=== PATIENT | female | born 1940 | race Caucasian/White ===

== ENCOUNTER → 2017-06-14 | Outpatient (CLI) | payer OTHER ==
[2017-06-14 11:37] LABS: BASOPHILS # (AUTO) 0.1 X10^3/uL (0.0-0.1); BASOPHILS % (AUTO) 0.8 % (0.2-1.0); EOSINOPHILS # (AUTO) 0.2 x10^3/uL (0.0-0.2); EOSINOPHILS % (AUTO) 2.6 % (0.9-2.9); HEMATOCRIT 37.5 % (36.0-47.0); HEMOGLOBIN 12.8 g/dL (12.0-16.0); LYMPHOCYTES # (AUTO) 1.7 X10^3/uL (1.3-2.9); LYMPHOCYTES % (AUTO) 24.1 % (21.0-51.0); MEAN CORPUSCULAR HEMOGLOBIN 29.5 pg (27.0-34.0); MEAN CORPUSCULAR HGB CONC 34.1 g/dL (33.0-35.0); MEAN CORPUSCULAR VOLUME 86.5 fL (80.0-100.0); MEAN PLATELET VOLUME 10.4 fL (7.4-11.0); MONOCYTES # (AUTO) 0.5 x10^3/uL (0.3-0.8); MONOCYTES % (AUTO) 7.1 % (0.0-13.0); NEUTROPHILS # (AUTO) 4.6 x10^3/uL (2.2-4.8); NEUTROPHILS % (AUTO) 65.4 % (42.0-75.0); PLATELET COUNT 128 X10^3/uL (150.0-450.0); RED BLOOD COUNT 4.34 X10^6/uL (3.5-5.4); RED CELL DISTRIBUTION WIDTH 13.4 % (11.6-16.5)
[2017-06-14 12:34] LABS: ALANINE AMINOTRANSFERASE 26 Units/L (12-78); ALBUMIN 3.8 g/dL (3.4-5.0); ALKALINE PHOSPHATASE 115 Units/L (46-116); ASPARTATE AMINO TRANSFERASE 18 Units/L (15-37); BLOOD UREA NITROGEN 36 mg/dL (7-18); CALCIUM 9.5 mg/dL (8.5-10.1); CARBON DIOXIDE 27.7 mmol/L (21-32); CHLORIDE 106 mmol/L (98-107); COR NA(FOR HYPERGLY) 144 mmol/L (136-145); CREATININE 2.38 mg/dL (0.55-1.02); SODIUM 143 mmol/L (136-145); TOTAL PROTEIN 7.2 g/dL (6.4-8.2); eGFR BLACK RACES 25 (>60); eGFR NON BLACK RACES 21 (>60)
== END ==
LOC: LAB 11:11
PROVIDERS: ATTEND Surgery
DX: R19.8 Other specified symptoms and signs involving the digestive system and abdomen (principal)
CPT/HCPCS: 36415; 80053; 82378; 85025

== ENCOUNTER 2017-06-20 07:11 | Day surgery (SDC) | payer OTHER ==
[~2017-06-20 07:11] MED LIST: D5 LR 1000 ML 1,000 ML IV ONE
[2017-06-20] MEDS ORDERED: DIPRIVAN VIAL 20 ML ONE (08:09)
[2017-06-20 09:54] VITALS: BP 134/47
== END 2017-06-20 09:47 | disposition home or self-care (01) ==
LOC: SURG1 07:11
PROVIDERS: ATTEND Surgery
PROC: 3E0H8GC Introduction of Other Therapeutic Substance into Lower GI, Via Natural or Artificial Opening Endoscopic (ICD-10-PCS; principal; 2017-06-20 09:45)
PROC: 0DJD8ZZ Inspection of Lower Intestinal Tract, Via Natural or Artificial Opening Endoscopic (ICD-10-PCS; principal; 2017-06-20 09:45)
PROC: 0DBN8ZX Excision of Sigmoid Colon, Via Natural or Artificial Opening Endoscopic, Diagnostic (ICD-10-PCS; principal; 2017-06-20 09:45)
DX: R19.4 Change in bowel habit (principal); R10.84 Generalized abdominal pain; K57.30 Diverticulosis of large intestine without perforation or abscess without bleeding; K63.89 Other specified diseases of intestine; D12.5 Benign neoplasm of sigmoid colon
CPT/HCPCS: 99100; A4217; J3490; J7120

== ENCOUNTER → 2017-06-22 | Outpatient (CLI) | payer OTHER ==
[2017-06-20 09:54] VITALS: BP 134/47
--- NOTE | 2017-06-22 09:56 | CT ---
CT abdomen and pelvis without contrast Indication: Rectal mass on colonoscopy Comparison: None Technique: CT images of the abdomen and pelvis were obtained with oral contrast. No IV contrast was g iven. Findings: There is severe lumbar spondylosis with associated scoliosis. No aggressive osseous lesions are seen. The lung bases are grossly clear. There is severe coronary artery disease. Evaluation of the abdominal pelvic viscera is limited without contrast. Accounting for this, the live r, spleen, stomach, duodenum, pancreas, right adrenal gland, and right kidney are unremarkable. There is a 2.5 cm left adrenal adenoma. The left kidney is atrophic. Previous cholecystectomy noted. No obvious rectal mass is identified, although evaluation of this area is limited with CT. There is c olonic diverticulosis without evidence for acute diverticulitis. Otherwise, no marked bowel thickenin g or dilatation of the lower GI tract is identified. The appendix is absent. The uterus is noted. The urinary bladder is unremarkable. No free fluid or adenopathy. There is marked aortoiliac atheroscler osis, without aneurysm. Impression: 1. No large rectal mass appreciated. No evidence for distant metastatic disease, within the limitatio ns of a noncontrast study. 2. Severe lumbar spondylosis, atherosclerosis, 2.5 cm left adrenal adenoma, atrophic left kidney. Reported By:
== END | disposition home or self-care (01) | DRG 395 ==
LOC: RAD 08:23
PROVIDERS: ATTEND Surgery
DX: K62.9 Disease of anus and rectum, unspecified (principal); M47.896 Other spondylosis, lumbar region; N26.1 Atrophy of kidney (terminal); D35.02 Benign neoplasm of left adrenal gland
CPT/HCPCS: 74176

== ENCOUNTER 2017-07-13 23:37 | Emergency (ER) | payer OTHER ==
[2017-07-13 23:58] VITALS: BP 134/70; BMI 25.8
--- NOTE | 2017-07-15 09:17 | DR.EXTPAIN ---
HPI - PCP Primary Care Physician: DR CALDEAR - Complaint/Symptoms Chief Complaint:: PRESSURE AND PULLING IN LEFT LOWER LEG AND CALF, COMPLAINTS OF CALF SHOWING MORE VEINS THAN NORMAL DOES HAVE A HX OF RL Self Treatment fo Chief Complaint: REGULAR SCHEDULED MEDICATIONS - Source History Provided: Patient - Mode of arrival Mode of Arrival: Ambulatory - Timing Onset of Chief Complaint: 07/13/17 PMH - PMH Past Medical History: Yes Past Medical History: Diabetes Past Medical History Comment: 03/31 [employer]- STAGE 4 KIDNEY FX Past Surgical History: Yes Surgical History: Appendectomy, Cholecystectomy, Hysterectomy, Tonsillectomy Past Surgical History Comment: GRAFT LEFT ARM FOR DIALYSIS - Family History History of Family Medical Conditions: Yes Family Medical History: Diabetes Mellitus, Sudden Cardiac - Social History Does patient currently use any type of tobacco product: No Have you used tobacco products in the last 12 months: No Type of Tobacco Use: None Does any household member use tobacco: No Alcohol Use: None Do you use any recreational Drugs:: No Lives With: Alone Lives Where: Home - infectious screening In the last 2 months have you had wt loss of >10#?: NO Have you had fever, night sweats or hemotysis?: No Have you traveled outside the country in the last 6 months?: No Isolation: Standard PE - Vital Signs Vitals: Temperature 98.3 F Pulse Rate 76 Respiratory Rate 18 Blood Pressure 134/70 O2 Sat by Pulse Oximetry 99 - Discharge Plan Disposition: LWBS After Triage Condition: Stable - Follow ups/Referrals Follow ups/Referrals: NFD,None [Primary Care Provider] - 3 days - Instructions
== END 2017-07-14 01:19 | disposition left against medical advice (07) ==
LOC: ER 23:37
DX: M79.605 Pain in left leg (principal)
CPT/HCPCS: 99281

== ENCOUNTER → 2017-07-29 | Outpatient (CLI) | payer OTHER ==
[2017-07-13 23:58] VITALS: BP 134/70
== END ==
LOC: LAB 08:42
PROVIDERS: ATTEND Nurse Practitioner Family
DX: E87.5 Hyperkalemia (principal)
CPT/HCPCS: 36415; 84132

== ENCOUNTER 2020-06-10 03:31 | Inpatient (IN) ==
[2020-06-10 03:46] VITALS: BMI 21.9
[2020-06-10] MEDS ORDERED: NS 1000 ML 1,000 ML IV ONE (05:08)
[2020-06-10] MEDS ORDERED: ZOFRAN INJ 4 MG VIAL IVP ONE (05:08)
[2020-06-10] MEDS ORDERED: ZOFRAN INJ 4 MG VIAL ONE (05:14)
[2020-06-10] MEDS ORDERED: NS 1000 ML 1,000 ML ONE (05:15)
--- NOTE | 2020-06-10 05:25 | DR.NAUSEAF ---
HPI Time Seen Time Seen by Provider: 06/10/20 05:08 Primary Care Physician Primary Care Physician: Irasema Complaints Chief Complaint Doctors Comments: chronic worsening n/v x 2 weeks. abd pain also. Chief Complaint:: Sick/ Nausea Self Treatment fo Chief Complaint: Phenegan 25mg Prevacid/Prilosec COVID-19 Coronavirus risk:travel/contact w/high risk person: No Has patient experienced Coronavirus symptoms: No Reviewed Nurses Notes Reviewed: Yes Source History Provided: Patient and Family Member Mode of Arrival Mode of Arrival: Ambulatory Timing Onset of Chief Complaint: 05/27/20 PMH PMH Past Medical History: Yes Past Medical History: Diabetes and Kidney Stones Past Surgical History: Yes Surgical History: Hysterectomy Past Surgical History Comment: Partial Hysterectomy, Tonsilectomy Family History History of Family Medical Conditions: Yes Family Medical History: Diabetes Mellitus, [place] and Hypertension Social History Alcohol Use: None Do you use any recreational Drugs:: No Lives With: Alone Lives Where: Home Travel Risk Coronavirus risk:travel/contact w/high risk person: No Has patient experienced Coronavirus symptoms: No Infectious screening In the last 2 months have you had wt loss of >10#?: NO Have you traveled outside the country in the last 6 months?: No Isolation: Standard ROS Review of Systems Constitutional: See HPI Eyes: No Symptoms Reported ENTM: No Symptoms Reported Respiratoy: No Symptoms Reported Cardiovascular: No Symptoms Reported Gastrointestinal/Abdominal: See HPI, Abdominal Pain, Nausea and Vomiting Genitourinary: No Symptoms Reported Neurological: No Symptoms Reported Musculoskeletal: No Symptoms Reported Integumentary: No Symptoms Reported All Other Systems: Reviewed and Negative PE Vital Signs Vitals: Temperature 97.7 F Pulse Rate 73 Respiratory Rate 20 Blood Pressure [Right Arm] 155/67 Blood Pressure 151/67 O2 Sat by Pulse Oximetry 97 General General Appearance: Alert and In Distress Head Head Exam: Normal Inspection Eyes Eye exam: Normal Appearance ENT ENT Exam: Mucous Membranes Dry Neck Neck Exam: Normal Inspection and Full ROM Respiratory Respiratory Exam: Normal Lung Sounds Bilat Cardiovascular Cardiovascular Exam: Regular Rate and Normal Heart Sounds Abdominal Exam Abdominal Exam: Normal Inspection and Normal Bowel Sounds Extremities Extremities Exam: Normal Inspection and Full ROM Back Back Exam: Normal Inspection and Full ROM Neurologic Neurological Exam: Alert and Oriented X3 Skin Skin Exam: Warm, Dry and Intact ROR Labs Reviewed Laboratory Results Reviewed?: Yes Result Diagrams: 06/10/20 05:40 06/10/20 05:40 Laboratory: WBC 6.8 X10^3/uL (3.6-10.0) 06/10/20 05:40 RBC 3.92 X10^6/uL (3.5-5.4) 06/10/20 05:40 Hgb 11.0 g/dL (12.0-16.0) L 06/10/20 05:40 Hct 33.4 % (36.0-47.0) L 06/10/20 05:40 MCV 85.0 fL (80.0-100.0) 06/10/20 05:40 MCH 28.1 pg (27.0-34.0) 06/10/20 05:40 MCHC 33.0 g/dL (33.0-35.0) 06/10/20 05:40 RDW 15.8 % (11.6-16.5) 06/10/20 05:40 Plt Count 195 X10^3/uL (150.0-450.0) 06/10/20 05:40 MPV 8.4 fL (7.4-11.0) 06/10/20 05:40 Neut % (Auto) 74.2 % (42.0-75.0) 06/10/20 05:40 Lymph % (Auto) 17.9 % (21.0-51.0) L 06/10/20 05:40 [place] % (Auto) 7.0 % (0.0-13.0) 06/10/20 05:40 Eos % (Auto) 0.4 % (0.9-2.9) L 06/10/20 05:40 Baso % (Auto) 0.5 % (0.2-1.0) 06/10/20 05:40 Neut # (Auto) 5.1 x10^3/uL (2.2-4.8) H 06/10/20 05:40 Lymph # (Auto) 1.2 X10^3/uL (1.3-2.9) L 06/10/20 05:40 [place] # (Auto) 0.5 x10^3/uL (0.3-0.8) 06/10/20 05:40 Eos # (Auto) 0.0 x10^3/uL (0.0-0.2) 06/10/20 05:40 Baso # (Auto) 0.0 X10^3/uL (0.0-0.1) 06/10/20 05:40 Absolute Nucleated RBC 0.0 /100WBC 06/10/20 05:40 Sodium 142 mmol/L (136-145) 06/10/20 05:40 Corrected Sodium 144 mmol/L (136-145) 06/10/20 05:40 Potassium 4.8 mmol/L (3.5-5.1) 06/10/20 05:40 Chloride 103 mmol/L (98-107) 06/10/20 05:40 Carbon Dioxide 27.1 mmol/L (21-32) 06/10/20 05:40 BUN 29 mg/dL (7-18) H 06/10/20 05:40 Creatinine 2.26 mg/dL (0.55-1.02) H 06/10/20 05:40 Est GFR (MDRD) Af Amer 27 (>60) L 06/10/20 05:40 Est GFR (MDRD) Non-Af 22 (>60) L 06/10/20 05:40 Glucose 188 mg/dL (65-99) H 06/10/20 05:40 Calcium 9.4 mg/dL (8.5-10.1) 06/10/20 05:40 Corrected Calcium 10.4 mg/dL (8.5-10.1) H 06/10/20 05:40 Total Bilirubin 0.20 mg/dL (0.2-1.0) 06/10/20 05:40 AST 14 Units/L (15-37) L 06/10/20 05:40 ALT 12 Units/L (12-78) 06/10/20 05:40 Alkaline Phosphatase 110 Units/L (46-116) 06/10/20 05:40 Total Protein 6.5 g/dL (6.4-8.2) 06/10/20 05:40 Albumin 2.8 g/dL (3.4-5.0) L 06/10/20 05:40 Globulin 3.7 g/dL (2.5-4.5) 06/10/20 05:40 Albumin/Globulin Ratio 0.8 Ratio (1.1-2.1) L 06/10/20 05:40 Lipase 45 Units/L (73-393) L 06/10/20 05:40 XRAY X-ray Results: CT shows apple core lesion at rectosigmoid w mod amt of feces proximal Opioid Opioid Risk Tool Age (Tio box if 16-45): No History of Preadolescent Sexual Abuse: No Total: 0 Total Score Risk Category: Low Risk Copyright: Lamont AYALA predicting aberrant behaviors Diagnosis Discharge Problem: Nausea and vomiting in adult patient Narrative Support Text: Mass at Rectosigmoid
--- NOTE | 2020-06-10 05:47 | CT ---
PROCEDURE: CT Abdomen and Pelvis without Contrast .HISTORY: Abdomen pain and nausea and vomiting this a.m..TECHNIQUE: Axial images were performed through the abdomen and pelvis without the administration of IV contrast with multiplanar reformations . Oral contrast was not administered . Dose reduction techniques including Automated Exposure Control (AEC) and adjustment of mA and kV were utilized .COMPARISON: 06/22/2017.TECHNICAL QUALITY: Satisfactory .FINDINGS:Some linear scar versus discoid atelectasis lung bases.Liver and spleen are unremarkable. 3.2 cm low-density left adrenal mass consistent with an adenoma. Fatty replacement of the pancreas with no other abnormality. Moderate atrophy of the left kidney diffusely. No urinary tract stones or obstructive uropathy.Previous cholecystectomy with normal size biliary tree.No abdominal ascites or pneumoperitoneum.Moderate atherosclerosis aorta.No lymphadenopathy.Large soft tissue mass with mucosal thickening rectosigmoid colon probably representing apple-core lesion related to neoplasm. There is moderate feces proximal to this point without definite obstruction. Normal size small bowel loops. Normal appendix right lower quadrant.Pelvis shows no masses or free fluid. Unremarkable reproductive organs and urinary bladder.No acute bony abnormality.IMPRESSION:1. 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 There is moderate feces proximal to the apple-core lesion.2. Left adrenal adenomas increased in size slightly.3. No other acute change identified.Electronically signed by: Karthikeyan Sharma (Jun 10, 2020 05:44:38)
[2020-06-10 06:00] LABS: BASOPHILS % (AUTO) 0.5 % (0.2-1.0); EOSINOPHILS % (AUTO) 0.4 % (0.9-2.9); HEMATOCRIT 33.4 % (36.0-47.0); LYMPHOCYTES # (AUTO) 1.2 X10^3/uL (1.3-2.9); LYMPHOCYTES % (AUTO) 17.9 % (21.0-51.0); MEAN CORPUSCULAR HEMOGLOBIN 28.1 pg (27.0-34.0); MEAN PLATELET VOLUME 8.4 fL (7.4-11.0); MONOCYTES # (AUTO) 0.5 x10^3/uL (0.3-0.8); NEUTROPHILS # (AUTO) 5.1 x10^3/uL (2.2-4.8); NEUTROPHILS % (AUTO) 74.2 % (42.0-75.0); PLATELET COUNT 195 X10^3/uL (150.0-450.0); RED BLOOD COUNT 3.92 X10^6/uL (3.5-5.4); RED CELL DISTRIBUTION WIDTH 15.8 % (11.6-16.5); WHITE BLOOD COUNT 6.8 X10^3/uL (3.6-10.0)
[2020-06-10 06:39] LABS: ALBUMIN 2.8 g/dL (3.4-5.0); CALCIUM 9.4 mg/dL (8.5-10.1); CARBON DIOXIDE 27.1 mmol/L (21-32); COR CA(FOR HYPOALB) 10.4 mg/dL (8.5-10.1); CREATININE 2.26 mg/dL (0.55-1.02); TOTAL PROTEIN 6.5 g/dL (6.4-8.2)
[2020-06-10] MEDS ORDERED: NS 1000 ML 1,000 ML IV SCH (09:00)
[2020-06-10] MEDS ORDERED: PHENERGAN TAB 25 MG PO PRN (09:34)
--- NOTE | 2020-06-10 10:19 | RAD ---
HISTORYPREOP, diabetes kidneys stone, hypertensionSTUDYCHEST, 1 VIEWCOMPARISONNoneFINDINGSThe trachea is midline. Normal heart size, the lungs are well expanded and clear.IMPRESSIONNo acute cardiopulmonary disease.Electronically signed by: Beverly Hylton (Jun 10, 2020 10:17:34)
--- NOTE | 2020-06-10 13:40 | DR.H&P ---
H&P History & Physical for Day of: H&P Date: 06/10/20 Chief Complaint Chief Complaint: nausea, vomiting and abdominal pain Allergies Allergies Allergy/AdvReac Type Severity Reaction Status Date / Time latex Allergy Verified 06/20/17 07:49 Sulfa (Sulfonamide Allergy Verified 06/20/17 07:49 Antibiotics) [SULFA] History of Present Illness History of Present Illness: Pt is a 80 year old female past medical history of DMT2, CKD IV, presenting with abdominal pain with associated nausea and vomiting for the past 2-3 days. She reports loss of appetite due to nausea, states she is still having bowel movements. Pt felt fatigue and with persistent symptoms decided to go to ED. Labs/imaging: Wbc 6.8, Hgb 11, Plt 915, Na 142, K 4.8, Cr 2.26, Glucose 188, AST 14, ALT 12, ALKP 110, Lipase 45, COVID-19 negative, CXR: No acute cardiopulmonary disease. CTAP showed recto-sigmoid mass concerning for malignancy. Patient had a rectal mass on colonoscopy in 2018 and biopsy was done which was negative for neoplasm. Plan: consult Dr. Parker, start gentle hydration with NS. Keep NPO. Start anti- emetics. Resume home medications, SSI. Monitor Am labs/imaging. Past Medical History Past Medical History: Diabetes, Kidney Stones and Renal Disease Past Surgical History Surgical History: Hysterectomy and Tonsillectomy Family History Family Medical History: Diabetes Mellitus, [place] and Hypertension Social History Does patient currently use any type of tobacco product: No Have you used tobacco products in the last 12 months: No Type of Tobacco Use: None Does any household member use tobacco: No Alcohol Use: None Drug Use: None Medications Home Medications: latex Allergy (Verified 06/20/17 07:49) Sulfa (Sulfonamide Antibiotics) [SULFA] Allergy (Verified 06/20/17 07:49) CONTINUE taking the following medications cephalexin 500 mg PO BID 06/10/20 [History] lorazepam 0.5 mg PO DAILY 06/10/20 [History] promethazine 25 mg PO 06/10/20 [History] Labs Result Diagrams: 06/11/20 05:42 06/11/20 05:42 Labs: Laboratory WBC 6.8 X10^3/uL (3.6-10.0) 06/10/20 05:40 RBC 3.92 X10^6/uL (3.5-5.4) 06/10/20 05:40 Hgb 11.0 g/dL (12.0-16.0) L 06/10/20 05:40 Hct 33.4 % (36.0-47.0) L 06/10/20 05:40 MCV 85.0 fL (80.0-100.0) 06/10/20 05:40 MCH 28.1 pg (27.0-34.0) 06/10/20 05:40 MCHC 33.0 g/dL (33.0-35.0) 06/10/20 05:40 RDW 15.8 % (11.6-16.5) 06/10/20 05:40 Plt Count 195 X10^3/uL (150.0-450.0) 06/10/20 05:40 MPV 8.4 fL (7.4-11.0) 06/10/20 05:40 Neut % (Auto) 74.2 % (42.0-75.0) 06/10/20 05:40 Lymph % (Auto) 17.9 % (21.0-51.0) L 06/10/20 05:40 [place] % (Auto) 7.0 % (0.0-13.0) 06/10/20 05:40 Eos % (Auto) 0.4 % (0.9-2.9) L 06/10/20 05:40 Baso % (Auto) 0.5 % (0.2-1.0) 06/10/20 05:40 Neut # (Auto) 5.1 x10^3/uL (2.2-4.8) H 06/10/20 05:40 Lymph # (Auto) 1.2 X10^3/uL (1.3-2.9) L 06/10/20 05:40 [place] # (Auto) 0.5 x10^3/uL (0.3-0.8) 06/10/20 05:40 Eos # (Auto) 0.0 x10^3/uL (0.0-0.2) 06/10/20 05:40 Baso # (Auto) 0.0 X10^3/uL (0.0-0.1) 06/10/20 05:40 Absolute Nucleated RBC 0.0 /100WBC 06/10/20 05:40 Sodium 142 mmol/L (136-145) 06/10/20 05:40 Corrected Sodium 144 mmol/L (136-145) 06/10/20 05:40 Potassium 4.8 mmol/L (3.5-5.1) 06/10/20 05:40 Chloride 103 mmol/L (98-107) 06/10/20 05:40 Carbon Dioxide 27.1 mmol/L (21-32) 06/10/20 05:40 BUN 29 mg/dL (7-18) H 06/10/20 05:40 Creatinine 2.26 mg/dL (0.55-1.02) H 06/10/20 05:40 Est GFR (MDRD) Af Amer 27 (>60) L 06/10/20 05:40 Est GFR (MDRD) Non-Af 22 (>60) L 06/10/20 05:40 Glucose 188 mg/dL (65-99) H 06/10/20 05:40 POC Glucose (mg/dL) 111 mg/dL (65-99) H 06/10/20 10:52 Calcium 9.4 mg/dL (8.5-10.1) 06/10/20 05:40 Corrected Calcium 10.4 mg/dL (8.5-10.1) H 06/10/20 05:40 Total Bilirubin 0.20 mg/dL (0.2-1.0) 06/10/20 05:40 AST 14 Units/L (15-37) L 06/10/20 05:40 ALT 12 Units/L (12-78) 06/10/20 05:40 Alkaline Phosphatase 110 Units/L (46-116) 06/10/20 05:40 Total Protein 6.5 g/dL (6.4-8.2) 06/10/20 05:40 Albumin 2.8 g/dL (3.4-5.0) L 06/10/20 05:40 Globulin 3.7 g/dL (2.5-4.5) 06/10/20 05:40 Albumin/Globulin Ratio 0.8 Ratio (1.1-2.1) L 06/10/20 05:40 Lipase 45 Units/L (73-393) L 06/10/20 05:40 SARS CoV-2 RNA Rapid RANJAN Negative (NEGATIVE) 06/10/20 07:31 Review of Systems Constitutional: Weakness Eyes: No Symptoms Reported ENT: No Symptoms Reported Respiratory: No Symptoms Reported Cardiovascular: No Symptoms Reported Gastrointestinal: Nausea, Vomiting and Abdominal Pain Genitourinary: No Symptoms Reported Musculoskeletal: No Symptoms Reported Skin: No Symptoms Reported Neurological: No Symptoms Reported Physical Exam Vital Signs: Temperature 98.1 F Pulse Rate [Right Brachial] 71 Pulse Rate 78 Respiratory Rate 16 Blood Pressure [Right Arm] 157/69 Blood Pressure 151/67 O2 Sat by Pulse Oximetry 99 Oriented: Normal Eyes: Normal Ear: Normal Nose: Normal Throat: Normal Respiratory: Clear Throughout Cardiovascular: Normal : Normal Auscultation: Bowel Sounds: Normal Tenderness: RLQ, LLQ and Mild Skin: Normal Musculoskeletal: Normal Psychiatric: Normal Mood Description: Calm and Appropriate Affect: Normal Speech Pattern: Clear and Appropriate Assessment/Plan (1) Nausea and vomiting in adult patient: Status: Acute (2) Rectal mass: Status: Acute (3) CKD (chronic kidney disease): Qualifiers: Chronic kidney disease stage: stage 3 (moderate) Chronic kidney disease stage 3 subtype: stage 3b (GFR 30-44) Qualified Code(s): N18.32 - Chronic kidney disease, stage 3b Status: Acute Review H&P Reviewed: Yes Patient was examined?: Yes
[2020-06-10] MEDS ORDERED: DULCOLAX TAB EC 5 MG PO ONE (13:50)
[2020-06-10] MEDS: FLAGYL IV PREMIX 500 MG BAG 500 MG/100 ML BAG IV SCH ×3 (13:53→20:34)
[2020-06-10] MEDS ORDERED: NULYTELY or GO-LYTELY PO SCH (14:00)
[2020-06-10] MEDS: ZOFRAN INJ 4 MG VIAL IVP PRN ×2 (14:06→20:37)
[2020-06-10] MEDS ORDERED: MIRALAX POWDER (255 GRAMS BTL) PO NR (16:00)
[2020-06-10] MEDS: D5 1/2 NS 1000 ML 1,000 ML IV SCH (16:12)
[2020-06-10] MEDS ORDERED: PHENERGAN INJ 25 MG IM ONE (21:41)
[2020-06-11] MEDS: FLAGYL IV PREMIX 500 MG BAG 500 MG/100 ML BAG IV SCH ×4 (02:45→20:27)
[2020-06-11] MEDS: D5 1/2 NS 1000 ML 1,000 ML IV SCH ×3 (02:45→20:15)
[2020-06-11 06:15] LABS: BASOPHILS % (AUTO) 0.5 % (0.2-1.0); EOSINOPHILS # (AUTO) 0.1 x10^3/uL (0.0-0.2); EOSINOPHILS % (AUTO) 1.9 % (0.9-2.9); HEMATOCRIT 31.5 % (36.0-47.0); HEMOGLOBIN 10.4 g/dL (12.0-16.0); LYMPHOCYTES # (AUTO) 1.5 X10^3/uL (1.3-2.9); LYMPHOCYTES % (AUTO) 25.3 % (21.0-51.0); MEAN CORPUSCULAR HGB CONC 33.1 g/dL (33.0-35.0); MEAN CORPUSCULAR VOLUME 84.5 fL (80.0-100.0); MEAN PLATELET VOLUME 8.7 fL (7.4-11.0); MONOCYTES # (AUTO) 0.5 x10^3/uL (0.3-0.8); MONOCYTES % (AUTO) 9.1 % (0.0-13.0); NEUTROPHILS # (AUTO) 3.7 x10^3/uL (2.2-4.8); NEUTROPHILS % (AUTO) 63.2 % (42.0-75.0); PLATELET COUNT 191 X10^3/uL (150.0-450.0); RED BLOOD COUNT 3.73 X10^6/uL (3.5-5.4); RED CELL DISTRIBUTION WIDTH 15.7 % (11.6-16.5); WHITE BLOOD COUNT 5.8 X10^3/uL (3.6-10.0)
[2020-06-11 06:26] LABS: ALBUMIN 2.4 g/dL (3.4-5.0); CALCIUM 8.9 mg/dL (8.5-10.1); CARBON DIOXIDE 26.4 mmol/L (21-32); COR CA(FOR HYPOALB) 10.2 mg/dL (8.5-10.1); CREATININE 2.18 mg/dL (0.55-1.02); TOTAL PROTEIN 5.5 g/dL (6.4-8.2)
[2020-06-11] MEDS ORDERED: BRIDION ONE (09:20)
[2020-06-11] MEDS ORDERED: FENTANYL INJ 250 mcg ONE (09:20)
[2020-06-11] MEDS ORDERED: ZEMURON 50 MG VIAL ONE (09:21)
[2020-06-11] MEDS ORDERED: AMIDATE INJ 40 MG VIAL ONE (09:21)
[2020-06-11] MEDS ORDERED: NS 1000 ML 1,000 ML ONE ×2 (09:33→09:53)
[2020-06-11] MEDS ORDERED: POLYMYXIN B SULFATE ONE (09:51)
[2020-06-11] MEDS ORDERED: SUPRANE ONE (10:16)
[2020-06-11] MEDS ORDERED: ZOFRAN INJ 4 MG VIAL ONE (10:16)
[2020-06-11] MEDS ORDERED: VERSED ONE (10:16)
[2020-06-11] MEDS ORDERED: XYLOCAINE 2 % (PLAIN) ONE (10:16)
[2020-06-11] MEDS ORDERED: EPHEDRINE SULFATE INJ ONE (10:16)
--- NOTE | 2020-06-11 10:28 | PCM.PROG ---
Progress Note Progress Note for Day of Date of Exam: 06/11/20 Subjective Subjective: Pt is a 80 year old female past medical history of DMT2, CKD, admitted for nausea and vomiting and recto-sigmoid mass. This morning patient reports some improvement in symptoms. She is a little anxious about the procedure today. Labs/imaging: Wbc 5.8, Hgb 10.4, Plt 191, Na 142, K 4.5, Cr 2.1 8, Glucose 160, CTAP showed recto-sigmoid mass concerning for malignancy. Echo: EF=64, severe aortic stenosis. General surgery consulted Dr. Guardado, Pt is on gentle hydration with NS. Keep NPO. Continue anti-emetics, SSI, IV Flagyl 500mg q6h. Pt received bowel prep yesterday. She is scheduled for mass resection with primary anastomosis today. Will follow surgery recommendation, otherwise continue current treatment plan and follow labs/imaging in the morning. Past Medical Family Social History Past Med/Fam/Surg Hx: No changes since H&P Allergies: Allergies latex Allergy (Verified 06/20/17 07:49) Sulfa (Sulfonamide Antibiotics) [SULFA] Allergy (Verified 06/20/17 07:49) Review of Systems ROS: No change since H&P Vital Signs and I&O's Vital Signs: Temperature 98 F Pulse Rate [Right Brachial] 72 Pulse Rate 75 Respiratory Rate 20 Blood Pressure [Right Arm] 122/56 Blood Pressure 161/73 O2 Sat by Pulse Oximetry 98 Intake and Output: Intake & Output 06/08/20 06/09/20 06/10/20 06/11/20 23:59 23:59 23:59 23:59 Intake Total 920 / 920 621 / 621 Balance 920 / 920 621 / 621 Physical Exam Oriented: Normal Eyes: Normal Ear: Normal Nose: Normal Throat: Normal Cardiovascular: Normal : Normal Auscultation: Bowel Sounds: Normal Tenderness: RLQ, LLQ and Mild Skin: Normal Musculoskeletal: Normal Psychiatric: Normal Mood Description: Calm and Appropriate Affect: Normal Speech Pattern: Clear and Appropriate Laboratory and Diagnostics Result Diagrams: 06/11/20 05:42 06/11/20 05:42 Labs: Laboratory WBC 5.8 X10^3/uL (3.6-10.0) 06/11/20 05:42 RBC 3.73 X10^6/uL (3.5-5.4) 06/11/20 05:42 Hgb 10.4 g/dL (12.0-16.0) L 06/11/20 05:42 Hct 31.5 % (36.0-47.0) L 06/11/20 05:42 MCV 84.5 fL (80.0-100.0) 06/11/20 05:42 MCH 28.0 pg (27.0-34.0) 06/11/20 05:42 MCHC 33.1 g/dL (33.0-35.0) 06/11/20 05:42 RDW 15.7 % (11.6-16.5) 06/11/20 05:42 Plt Count 191 X10^3/uL (150.0-450.0) 06/11/20 05:42 MPV 8.7 fL (7.4-11.0) 06/11/20 05:42 Neut % (Auto) 63.2 % (42.0-75.0) 06/11/20 05:42 Lymph % (Auto) 25.3 % (21.0-51.0) 06/11/20 05:42 [place] % (Auto) 9.1 % (0.0-13.0) 06/11/20 05:42 Eos % (Auto) 1.9 % (0.9-2.9) 06/11/20 05:42 Baso % (Auto) 0.5 % (0.2-1.0) 06/11/20 05:42 Neut # (Auto) 3.7 x10^3/uL (2.2-4.8) 06/11/20 05:42 Lymph # (Auto) 1.5 X10^3/uL (1.3-2.9) 06/11/20 05:42 [place] # (Auto) 0.5 x10^3/uL (0.3-0.8) 06/11/20 05:42 Eos # (Auto) 0.1 x10^3/uL (0.0-0.2) 06/11/20 05:42 Baso # (Auto) 0.0 X10^3/uL (0.0-0.1) 06/11/20 05:42 Absolute Nucleated RBC 0.0 /100WBC 06/11/20 05:42 Sodium 141 mmol/L (136-145) 06/11/20 05:42 Corrected Sodium 142 mmol/L (136-145) 06/11/20 05:42 Potassium 4.5 mmol/L (3.5-5.1) 06/11/20 05:42 Chloride 107 mmol/L (98-107) 06/11/20 05:42 Carbon Dioxide 26.4 mmol/L (21-32) 06/11/20 05:42 BUN 25 mg/dL (7-18) H 06/11/20 05:42 Creatinine 2.18 mg/dL (0.55-1.02) H 06/11/20 05:42 Est GFR (MDRD) Af Amer 28 (>60) L 06/11/20 05:42 Est GFR (MDRD) Non-Af 23 (>60) L 06/11/20 05:42 Glucose 160 mg/dL (65-99) H 06/11/20 05:42 POC Glucose (mg/dL) 142 mg/dL (65-99) H 06/11/20 05:32 Calcium 8.9 mg/dL (8.5-10.1) 06/11/20 05:42 Corrected Calcium 10.2 mg/dL (8.5-10.1) H 06/11/20 05:42 Total Bilirubin 0.20 mg/dL (0.2-1.0) 06/11/20 05:42 AST 11 Units/L (15-37) L 06/11/20 05:42 ALT 8 Units/L (12-78) L 06/11/20 05:42 Alkaline Phosphatase 88 Units/L (46-116) 06/11/20 05:42 Total Protein 5.5 g/dL (6.4-8.2) L 06/11/20 05:42 Albumin 2.4 g/dL (3.4-5.0) L 06/11/20 05:42 Globulin 3.1 g/dL (2.5-4.5) 06/11/20 05:42 Albumin/Globulin Ratio 0.8 Ratio (1.1-2.1) L 06/11/20 05:42 Lipase 45 Units/L (73-393) L 06/10/20 05:40 SARS CoV-2 RNA Rapid RANJAN Negative (NEGATIVE) 06/10/20 07:31 Plan (1) Rectal mass: Status: Acute Plan: Scheduled for surgical resection today with primary anastomosis. (2) Nausea and vomiting in adult patient: Status: Acute (3) CKD (chronic kidney disease): Status: Acute Qualifiers: Chronic kidney disease stage: stage 3 (moderate) Chronic kidney disease stage 3 subtype: stage 3b (GFR 30-44) Qualified Code(s): N18.32 - Chronic kidney disease, stage 3b
[2020-06-11] MEDS ORDERED: ANCEF VIAL 1 GRAM ONE (10:51)
[2020-06-11] MEDS ORDERED: DILAUDID INJ ONE (11:32)
[2020-06-11] MEDS ORDERED: FENTANYL INJ 100 mcg ONE (11:33)
[2020-06-11] MEDS ORDERED: BETADINE SOLN ONE (12:52)
[2020-06-11] MEDS ORDERED: BENADRYL INJ 50 MG VIAL IVP PRN (13:32)
[2020-06-11] MEDS ORDERED: ZOFRAN INJ 4 MG VIAL IVP PRN (13:32)
[2020-06-11] MEDS ORDERED: PHENERGAN INJ 25 MG IM PRN (13:32)
[2020-06-11] MEDS ORDERED: DILAUDID INJ IVP PRN (13:32)
--- NOTE | 2020-06-11 13:38 | DR.UPDATE ---
H&P Update History and Physical Update: History and Physical reviewed and patient examined. Changes noted: NO Yes with the following: will place central line for fluid maintenance for bowel resection H&P Reviewed: Yes Patient was examined?: Yes Procedures (ALL) - Central Line Placement PCM.CLCO: verbal consent Time out performed: Yes Patient placed pm monitor/pulse ox: Yes MD prep: mask, gown, gloves, other Centrial line prep: chlorhexidine scrub, sterile drapes applied Ultrasound used for placement: Yes (right IJ visualized/canulization visualized) Central line lumen ininserted: triple Post procedure: sutured in place, good blood return, all ports aspirated, flushed,capped, sterile dressing applied Post procedure xray: tip oc catheter in good position (see CXR pending) Patient tolerated procedure: Yes Complications: none
[2020-06-11] MEDS ORDERED: D5 1/2 NS 1000 ML 1,000 ML IV SCH (14:00)
--- NOTE | 2020-06-11 14:23 | RAD ---
HISTORYCENTRAL LINE PLACEMENTSTUDYCHEST, 1 VIEWCOMPARISONPortable chest June 10, 2020.FINDINGSThe trachea is midline. The cardiac silhouette is unremarkable . The lungs are clear without focal infiltrate or effusion but there is atelectasis in the right lung base medially. An NG tube is in place with the tip in the lateral foot body of the stomach. A right internal jugular line is been placed since yesterday's exam with the tip in the right atrium. There is no pneumothorax.. The bony thorax is unremarkable.IMPRESSIONNG tube in place in good position, right internal jugular line in good position with the tip in the right atrium without pneumothorax.Mild atelectasis is noted in the right lung base new from yesterday's exam.Electronically signed by: MARQUITA RICKS (Jun 11, 2020 14:20:13)
[2020-06-11] MEDS: DILAUDID INJ IVP PRN ×2 (16:29→20:27)
[2020-06-11] MEDS: HumuLIN R SC PRN ×2 (17:30→20:37)
[2020-06-11 18:01] LABS: BASOPHILS % (AUTO) 0.1 % (0.2-1.0); HEMATOCRIT 29.3 % (36.0-47.0); HEMOGLOBIN 9.4 g/dL (12.0-16.0); LYMPHOCYTES # (AUTO) 0.6 X10^3/uL (1.3-2.9); LYMPHOCYTES % (AUTO) 3.5 % (21.0-51.0); MEAN CORPUSCULAR HEMOGLOBIN 27.8 pg (27.0-34.0); MEAN CORPUSCULAR HGB CONC 32.2 g/dL (33.0-35.0); MEAN CORPUSCULAR VOLUME 86.4 fL (80.0-100.0); MEAN PLATELET VOLUME 8.7 fL (7.4-11.0); MONOCYTES # (AUTO) 0.9 x10^3/uL (0.3-0.8); MONOCYTES % (AUTO) 5.4 % (0.0-13.0); NEUTROPHILS # (AUTO) 15.5 x10^3/uL (2.2-4.8); PLATELET COUNT 197 X10^3/uL (150.0-450.0); RED BLOOD COUNT 3.39 X10^6/uL (3.5-5.4)
[2020-06-11 18:22] LABS: BAND NEUTROPHILS % 4 % (0-10); PLATELET MORPHOLOGY COMMENT NORMAL (NORMAL)
[2020-06-12] MEDS: ZOFRAN INJ 4 MG VIAL IVP PRN ×2 (00:05→08:05)
[2020-06-12] MEDS: DILAUDID INJ IVP PRN ×7 (00:20→23:30)
[2020-06-12] MEDS: D5 1/2 NS 1000 ML 1,000 ML IV SCH ×7 (01:39→20:00)
[2020-06-12] MEDS: FLAGYL IV PREMIX 500 MG BAG 500 MG/100 ML BAG IV SCH ×4 (03:30→20:00)
[2020-06-12 04:49] LABS: BASOPHILS % (AUTO) 0.3 % (0.2-1.0); HEMATOCRIT 29.2 % (36.0-47.0); HEMOGLOBIN 9.3 g/dL (12.0-16.0); LYMPHOCYTES # (AUTO) 0.8 X10^3/uL (1.3-2.9); MEAN CORPUSCULAR HEMOGLOBIN 27.7 pg (27.0-34.0); MEAN CORPUSCULAR HGB CONC 31.7 g/dL (33.0-35.0); MEAN CORPUSCULAR VOLUME 87.2 fL (80.0-100.0); MEAN PLATELET VOLUME 8.9 fL (7.4-11.0); MONOCYTES # (AUTO) 0.7 x10^3/uL (0.3-0.8); MONOCYTES % (AUTO) 6.2 % (0.0-13.0); NEUTROPHILS # (AUTO) 9.4 x10^3/uL (2.2-4.8); NEUTROPHILS % (AUTO) 86.5 % (42.0-75.0); PLATELET COUNT 182 X10^3/uL (150.0-450.0); RED BLOOD COUNT 3.35 X10^6/uL (3.5-5.4); RED CELL DISTRIBUTION WIDTH 15.8 % (11.6-16.5); WHITE BLOOD COUNT 10.9 X10^3/uL (3.6-10.0)
[2020-06-12 04:56] LABS: ALBUMIN 2.3 g/dL (3.4-5.0); CALCIUM 8.6 mg/dL (8.5-10.1); CARBON DIOXIDE 25.3 mmol/L (21-32); CREATININE 2.5 mg/dL (0.55-1.02); TOTAL PROTEIN 5.2 g/dL (6.4-8.2)
[2020-06-12] MEDS: HumuLIN R SC PRN ×3 (06:11→16:58)
[2020-06-12] MEDS: LOVENOX INJ 30 MG SYR SC SCH (08:45)
[2020-06-12] MEDS: PROTONIX INJ 40 MG VIAL IVP SCH (08:46)
--- NOTE | 2020-06-12 08:50 | DR.PROGNOT ---
Hospital Progress Notes - Progress Note for Day of: Progress Note Date: 06/12/20 - Chief Complaint Chief Complaint: PO day 1 . c/o incisional pain . urine out put was low last night , slightly improved with fluid. BUN/Creat 27/2.5 normal lytes . WBC 10.9 Hgb 9.3. temp 98.7 - Past Medical Family Social History Past Med/Fam/Surg Hx: No changes since H&P Allergies: Allergies latex Allergy (Verified 06/20/17 07:49) Sulfa (Sulfonamide Antibiotics) [SULFA] Allergy (Verified 06/20/17 07:49) - Review Of Systems ROS: No change since H&P - Vital Signs Vital Signs: Temperature 97.9 F Pulse Rate [Right Brachial] 84 Pulse Rate 108 Respiratory Rate 14 Blood Pressure [Right Arm] 146/67 Blood Pressure 120/65 O2 Sat by Pulse Oximetry 98 - Physical Exam Oriented: Normal Eyes: Normal Ear: Normal Nose: Normal Throat: Normal Cardiovascular: Normal : Normal, Other (has guerra in place ) GI:Auscultation: Decreased GI: Tenderness: Diffuse (soft abdpmen with diffuse tenderness . ) Skin: Normal Musculoskeletal: Normal Psychiatric: Normal Mood Description: Anxious Affect: Normal Speech Pattern: Clear, Appropriate - Laboratory and Diagnostics Result Diagrams: 06/12/20 04:20 06/12/20 04:20 Labs: Laboratory WBC 10.9 X10^3/uL (3.6-10.0) H 06/12/20 04:20 RBC 3.35 X10^6/uL (3.5-5.4) L 06/12/20 04:20 Hgb 9.3 g/dL (12.0-16.0) L 06/12/20 04:20 Hct 29.2 % (36.0-47.0) L 06/12/20 04:20 MCV 87.2 fL (80.0-100.0) 06/12/20 04:20 MCH 27.7 pg (27.0-34.0) 06/12/20 04:20 MCHC 31.7 g/dL (33.0-35.0) L 06/12/20 04:20 RDW 15.8 % (11.6-16.5) 06/12/20 04:20 Plt Count 182 X10^3/uL (150.0-450.0) 06/12/20 04:20 Plt Count Comment Adequate (ADEQUATE) 06/11/20 17:40 MPV 8.9 fL (7.4-11.0) 06/12/20 04:20 Neut % (Auto) 86.5 % (42.0-75.0) H 06/12/20 04:20 Lymph % (Auto) 7.0 % (21.0-51.0) L 06/12/20 04:20 [place] % (Auto) 6.2 % (0.0-13.0) 06/12/20 04:20 Eos % (Auto) 0.0 % (0.9-2.9) L 06/12/20 04:20 Baso % (Auto) 0.3 % (0.2-1.0) 06/12/20 04:20 Neut # (Auto) 9.4 x10^3/uL (2.2-4.8) H 06/12/20 04:20 Lymph # (Auto) 0.8 X10^3/uL (1.3-2.9) L 06/12/20 04:20 [place] # (Auto) 0.7 x10^3/uL (0.3-0.8) 06/12/20 04:20 Eos # (Auto) 0.0 x10^3/uL (0.0-0.2) 06/12/20 04:20 Baso # (Auto) 0.0 X10^3/uL (0.0-0.1) 06/12/20 04:20 Absolute Nucleated RBC 0.0 /100WBC 06/12/20 04:20 Total Counted 100 06/11/20 17:40 Neutrophils % (Manual) 87 % (39-76) H 06/11/20 17:40 Band Neutrophils % 4 % (0-10) 06/11/20 17:40 Lymphocytes % (Manual) 5 % (13-43) L 06/11/20 17:40 Monocytes % (Manual) 4 % (4-9) 06/11/20 17:40 Plt Morphology Comment Normal (NORMAL) 06/11/20 17:40 RBC Morphology Normal (NORMAL) 06/11/20 17:40 Sodium 139 mmol/L (136-145) 06/12/20 04:20 Corrected Sodium 145 mmol/L (136-145) 06/12/20 04:20 Potassium 4.9 mmol/L (3.5-5.1) 06/12/20 04:20 Chloride 107 mmol/L (98-107) 06/12/20 04:20 Carbon Dioxide 25.3 mmol/L (21-32) 06/12/20 04:20 BUN 27 mg/dL (7-18) H 06/12/20 04:20 Creatinine 2.50 mg/dL (0.55-1.02) H 06/12/20 04:20 Est GFR (MDRD) Af Amer 24 (>60) L 06/12/20 04:20 Est GFR (MDRD) Non-Af 20 (>60) L 06/12/20 04:20 Glucose 335 mg/dL (65-99) H 06/12/20 04:20 POC Glucose (mg/dL) 280 mg/dL (65-99) H 06/11/20 19:34 Calcium 8.6 mg/dL (8.5-10.1) 06/12/20 04:20 Corrected Calcium 10.0 mg/dL (8.5-10.1) 06/12/20 04:20 Total Bilirubin 0.30 mg/dL (0.2-1.0) 06/12/20 04:20 AST 43 Units/L (15-37) H 06/12/20 04:20 ALT 15 Units/L (12-78) 06/12/20 04:20 Alkaline Phosphatase 80 Units/L (46-116) 06/12/20 04:20 Total Protein 5.2 g/dL (6.4-8.2) L 06/12/20 04:20 Albumin 2.3 g/dL (3.4-5.0) L 06/12/20 04:20 Globulin 2.9 g/dL (2.5-4.5) 06/12/20 04:20 Albumin/Globulin Ratio 0.8 Ratio (1.1-2.1) L 06/12/20 04:20 Lipase 45 Units/L (73-393) L 06/10/20 05:40 SARS CoV-2 RNA Rapid RANJAN Negative (NEGATIVE) 06/10/20 07:31 Tissue Pathology To follow 03/17/21 12:30 - Assessment and Plan 1: obstructing mass of recto sigmoid ,. s/p Gant's procedure . CKD , DM. HTN ,. same PO care . OOB , D/C NGT , DVT prophylaxis , incentive spirometer . - Problem Patient Problems: Patient Problems Nausea and vomiting in adult patient (Acute) R11.2
[2020-06-12] MEDS ORDERED: ATIVAN INJ 2 MG VIAL IVP PRN ×2 (12:42→23:42)
--- NOTE | 2020-06-12 13:12 | PCM.PROG ---
Progress Note Progress Note for Day of Date of Exam: 06/12/20 Subjective Subjective: Pt is a 80 year old female past medical history of DMT2, CKD, admitted recto-sigmoid mass s/p mass resection with colostomy. This morning patient is resting in bed. No acute concerns overnight. Labs/imaging: Wbc 10.9, Hgb 9.3, Plt 182, Na 139, K 4.9, Cr 2.50, Glucose 135. Pt is on IVF D5 1/2 NS@150ml/h. Will advance diet to clear liquids. Continue anti-emetics, SSI, IV Flagyl 500mg q6h. Follow surgery recommendations, KUB ordered for the morning. Continue current treatment plan and follow labs/imaging in the morning. Past Medical Family Social History Past Med/Fam/Surg Hx: No changes since H&P Allergies: Allergies latex Allergy (Verified 06/20/17 07:49) Sulfa (Sulfonamide Antibiotics) [SULFA] Allergy (Verified 06/20/17 07:49) Review of Systems ROS: No change since H&P Vital Signs and I&O's Vital Signs: Temperature 98.4 F Pulse Rate [Right Brachial] 82 Pulse Rate 108 Respiratory Rate 16 Blood Pressure [Right Arm] 143/62 Blood Pressure 120/65 O2 Sat by Pulse Oximetry 100 Intake and Output: Intake & Output 06/09/20 06/10/20 06/11/20 06/12/20 23:59 23:59 23:59 23:59 Intake Total 920 / 920 5624 / 5624 819 / 819 Output Total 2551 / 2587 174 / 174 Balance 920 / 920 3073 / 3037 645 / 645 Physical Exam Oriented: Normal Eyes: Normal Ear: Normal Nose: Normal Throat: Normal Respiratory: Normal Cardiovascular: Normal : Other (has guerra in place ) Auscultation: Bowel Sounds: Decreased Palpation: Other (colostomy bag noted) Tenderness: Other (colostomy present ) Skin: Normal Musculoskeletal: Normal Psychiatric: Normal Mood Description: Anxious Affect: Normal Speech Pattern: Clear and Appropriate Laboratory and Diagnostics Result Diagrams: 06/12/20 04:20 06/12/20 04:20 Labs: Laboratory WBC 10.9 X10^3/uL (3.6-10.0) H 06/12/20 04:20 RBC 3.35 X10^6/uL (3.5-5.4) L 06/12/20 04:20 Hgb 9.3 g/dL (12.0-16.0) L 06/12/20 04:20 Hct 29.2 % (36.0-47.0) L 06/12/20 04:20 MCV 87.2 fL (80.0-100.0) 06/12/20 04:20 MCH 27.7 pg (27.0-34.0) 06/12/20 04:20 MCHC 31.7 g/dL (33.0-35.0) L 06/12/20 04:20 RDW 15.8 % (11.6-16.5) 06/12/20 04:20 Plt Count 182 X10^3/uL (150.0-450.0) 06/12/20 04:20 Plt Count Comment Adequate (ADEQUATE) 06/11/20 17:40 MPV 8.9 fL (7.4-11.0) 06/12/20 04:20 Neut % (Auto) 86.5 % (42.0-75.0) H 06/12/20 04:20 Lymph % (Auto) 7.0 % (21.0-51.0) L 06/12/20 04:20 [place] % (Auto) 6.2 % (0.0-13.0) 06/12/20 04:20 Eos % (Auto) 0.0 % (0.9-2.9) L 06/12/20 04:20 Baso % (Auto) 0.3 % (0.2-1.0) 06/12/20 04:20 Neut # (Auto) 9.4 x10^3/uL (2.2-4.8) H 06/12/20 04:20 Lymph # (Auto) 0.8 X10^3/uL (1.3-2.9) L 06/12/20 04:20 [place] # (Auto) 0.7 x10^3/uL (0.3-0.8) 06/12/20 04:20 Eos # (Auto) 0.0 x10^3/uL (0.0-0.2) 06/12/20 04:20 Baso # (Auto) 0.0 X10^3/uL (0.0-0.1) 06/12/20 04:20 Absolute Nucleated RBC 0.0 /100WBC 06/12/20 04:20 Total Counted 100 06/11/20 17:40 Neutrophils % (Manual) 87 % (39-76) H 06/11/20 17:40 Band Neutrophils % 4 % (0-10) 06/11/20 17:40 Lymphocytes % (Manual) 5 % (13-43) L 06/11/20 17:40 Monocytes % (Manual) 4 % (4-9) 06/11/20 17:40 Plt Morphology Comment Normal (NORMAL) 06/11/20 17:40 RBC Morphology Normal (NORMAL) 06/11/20 17:40 Sodium 139 mmol/L (136-145) 06/12/20 04:20 Corrected Sodium 145 mmol/L (136-145) 06/12/20 04:20 Potassium 4.9 mmol/L (3.5-5.1) 06/12/20 04:20 Chloride 107 mmol/L (98-107) 06/12/20 04:20 Carbon Dioxide 25.3 mmol/L (21-32) 06/12/20 04:20 BUN 27 mg/dL (7-18) H 06/12/20 04:20 Creatinine 2.50 mg/dL (0.55-1.02) H 06/12/20 04:20 Est GFR (MDRD) Af Amer 24 (>60) L 06/12/20 04:20 Est GFR (MDRD) Non-Af 20 (>60) L 06/12/20 04:20 Glucose 335 mg/dL (65-99) H 06/12/20 04:20 POC Glucose (mg/dL) 230 mg/dL (65-99) H 06/12/20 11:44 Calcium 8.6 mg/dL (8.5-10.1) 06/12/20 04:20 Corrected Calcium 10.0 mg/dL (8.5-10.1) 06/12/20 04:20 Total Bilirubin 0.30 mg/dL (0.2-1.0) 06/12/20 04:20 AST 43 Units/L (15-37) H 06/12/20 04:20 ALT 15 Units/L (12-78) 06/12/20 04:20 Alkaline Phosphatase 80 Units/L (46-116) 06/12/20 04:20 Total Protein 5.2 g/dL (6.4-8.2) L 06/12/20 04:20 Albumin 2.3 g/dL (3.4-5.0) L 06/12/20 04:20 Globulin 2.9 g/dL (2.5-4.5) 06/12/20 04:20 Albumin/Globulin Ratio 0.8 Ratio (1.1-2.1) L 06/12/20 04:20 Lipase 45 Units/L (73-393) L 06/10/20 05:40 SARS CoV-2 RNA Rapid RANJAN Negative (NEGATIVE) 06/10/20 07:31 Tissue Pathology To follow 06/11/20 12:30 Plan (1) Rectal mass: Status: Acute Plan: S/P resection with colostomy (2) Nausea and vomiting in adult patient: Status: Acute (3) CKD (chronic kidney disease): Status: Acute Qualifiers: Chronic kidney disease stage: stage 3 (moderate) Chronic kidney disease stage 3 subtype: stage 3b (GFR 30-44) Qualified Code(s): N18.32 - Chronic kidney disease, stage 3b
[2020-06-12] MEDS ORDERED: SEROquel TAB 25 mg PO ONE (23:10)
[2020-06-13] MEDS: D5 1/2 NS 1000 ML 1,000 ML IV SCH ×5 (03:39→17:20)
[2020-06-13] MEDS: FLAGYL IV PREMIX 500 MG BAG 500 MG/100 ML BAG IV SCH ×4 (03:40→20:51)
[2020-06-13 06:08] LABS: ALBUMIN 2.1 g/dL (3.4-5.0); CALCIUM 8.7 mg/dL (8.5-10.1); COR CA(FOR HYPOALB) 10.2 mg/dL (8.5-10.1); CREATININE 2.19 mg/dL (0.55-1.02); TOTAL PROTEIN 4.8 g/dL (6.4-8.2)
[2020-06-13 06:10] LABS: BASOPHILS % (AUTO) 0.3 % (0.2-1.0); EOSINOPHILS # (AUTO) 0.2 x10^3/uL (0.0-0.2); EOSINOPHILS % (AUTO) 2.4 % (0.9-2.9); HEMOGLOBIN 8.2 g/dL (12.0-16.0); LYMPHOCYTES # (AUTO) 0.9 X10^3/uL (1.3-2.9); LYMPHOCYTES % (AUTO) 10.4 % (21.0-51.0); MEAN CORPUSCULAR HEMOGLOBIN 28.3 pg (27.0-34.0); MEAN CORPUSCULAR VOLUME 85.7 fL (80.0-100.0); MEAN PLATELET VOLUME 9.2 fL (7.4-11.0); MONOCYTES # (AUTO) 0.4 x10^3/uL (0.3-0.8); MONOCYTES % (AUTO) 5.3 % (0.0-13.0); NEUTROPHILS # (AUTO) 6.9 x10^3/uL (2.2-4.8); NEUTROPHILS % (AUTO) 81.6 % (42.0-75.0); PLATELET COUNT 159 X10^3/uL (150.0-450.0); RED BLOOD COUNT 2.91 X10^6/uL (3.5-5.4); WHITE BLOOD COUNT 8.5 X10^3/uL (3.6-10.0)
--- NOTE | 2020-06-13 06:18 | RAD ---
KUBHISTORY: S/P BOWEL RESSECTION WITH COLOSTOMYStudy: Single flat views of the abdomenComparison:NoneFindings:There is a normal bowel gas pattern.Patient markedly rotated..No abnormal calcifications or abnormal soft tissue shadows. No acute bony abnormalities.IMPRESSION:1. Limited examination which is grossly unremarkable.Electronically signed by: CHANTE HER (Jun 13, 2020 06:16:28)
[2020-06-13] MEDS ORDERED: ATIVAN TAB 0.5 MG PO PRN (08:10)
--- NOTE | 2020-06-13 08:10 | PCM.PROG ---
Progress Note Progress Note for Day of Date of Exam: 06/13/20 Subjective Subjective: Pt is a 80 year old female past medical history of DMT2, CKD, admitted recto-sigmoid mass s/p mass resection with colostomy, POD#2. This morning patient is in bed appearing fatigued. Overnight patient became agitated, yelling down the [place], pulling at IV lines and trying to remove guerra. She was given seroquel that she responded to but would also explain why she is tired this morning. Labs/imaging: Wbc 8.5, Hgb 8.2, Plt 159, Na 136, K 4.7, Cr 2.19, Glucose 261. Pt is on IVF D5 1/2 NS@150ml/h, will reduce to 125ml/h. Diet is clear liquids, advance as tolerated and per surgery recommendations. Continue anti-emetics, SSI, IV Flagyl 500mg q6h. KUB this morning revealed: Limited exam which is grossly unremarkable. Colostomy bag in place, does not appear to have any bowel in it. Discontinue dilaudid, change ativan to PO, order temazepam scheduled at night. Physical therapy ordered. Otherwise continue with current treatment plan. Monitor and follow labs/imaging in the morning. Past Medical Family Social History Past Med/Fam/Surg Hx: No changes since H&P Allergies: Allergies latex Allergy (Verified 06/20/17 07:49) Sulfa (Sulfonamide Antibiotics) [SULFA] Allergy (Verified 06/20/17 07:49) Review of Systems ROS: No change since H&P Vital Signs and I&O's Vital Signs: Temperature 98.1 F Pulse Rate [Right Brachial] 93 Pulse Rate 93 Respiratory Rate 16 Blood Pressure [Right Arm] 152/69 Blood Pressure 120/65 O2 Sat by Pulse Oximetry 96 Intake and Output: Intake & Output 06/10/20 06/11/20 06/12/20 06/13/20 23:59 23:59 23:59 23:59 Intake Total 920 / 920 5624 / 5624 2509 / 2509 2133 / 2133 Output Total 2551 / 2587 1422 / 1432 806 / 806 Balance 920 / 920 3073 / 3037 1087 / 1077 1327 / 1327 Physical Exam Oriented: Normal Eyes: Normal Ear: Normal Nose: Normal Throat: Normal Respiratory: Normal Cardiovascular: Normal : Other (has guerra in place ) Auscultation: Bowel Sounds: Decreased Tenderness: Other (colostomy present ) Skin: Normal Musculoskeletal: Normal Psychiatric: Normal Mood Description: Anxious Affect: Normal Speech Pattern: Clear and Appropriate Laboratory and Diagnostics Result Diagrams: 06/13/20 05:16 06/13/20 05:16 Labs: Laboratory WBC 8.5 X10^3/uL (3.6-10.0) 06/13/20 05:16 RBC 2.91 X10^6/uL (3.5-5.4) L 06/13/20 05:16 Hgb 8.2 g/dL (12.0-16.0) L 06/13/20 05:16 Hct 25.0 % (36.0-47.0) L 06/13/20 05:16 MCV 85.7 fL (80.0-100.0) 06/13/20 05:16 MCH 28.3 pg (27.0-34.0) 06/13/20 05:16 MCHC 33.0 g/dL (33.0-35.0) 06/13/20 05:16 RDW 16.0 % (11.6-16.5) 06/13/20 05:16 Plt Count 159 X10^3/uL (150.0-450.0) 06/13/20 05:16 Plt Count Comment Adequate (ADEQUATE) 06/11/20 17:40 MPV 9.2 fL (7.4-11.0) 06/13/20 05:16 Neut % (Auto) 81.6 % (42.0-75.0) H 06/13/20 05:16 Lymph % (Auto) 10.4 % (21.0-51.0) L 06/13/20 05:16 [place] % (Auto) 5.3 % (0.0-13.0) 06/13/20 05:16 Eos % (Auto) 2.4 % (0.9-2.9) 06/13/20 05:16 Baso % (Auto) 0.3 % (0.2-1.0) 06/13/20 05:16 Neut # (Auto) 6.9 x10^3/uL (2.2-4.8) H 06/13/20 05:16 Lymph # (Auto) 0.9 X10^3/uL (1.3-2.9) L 06/13/20 05:16 [place] # (Auto) 0.4 x10^3/uL (0.3-0.8) 06/13/20 05:16 Eos # (Auto) 0.2 x10^3/uL (0.0-0.2) 06/13/20 05:16 Baso # (Auto) 0.0 X10^3/uL (0.0-0.1) 06/13/20 05:16 Absolute Nucleated RBC 0.0 /100WBC 06/13/20 05:16 Total Counted 100 06/11/20 17:40 Neutrophils % (Manual) 87 % (39-76) H 06/11/20 17:40 Band Neutrophils % 4 % (0-10) 06/11/20 17:40 Lymphocytes % (Manual) 5 % (13-43) L 06/11/20 17:40 Monocytes % (Manual) 4 % (4-9) 06/11/20 17:40 Plt Morphology Comment Normal (NORMAL) 06/11/20 17:40 RBC Morphology Normal (NORMAL) 06/11/20 17:40 Sodium 136 mmol/L (136-145) 06/13/20 05:16 Corrected Sodium 140 mmol/L (136-145) 06/13/20 05:16 Potassium 4.7 mmol/L (3.5-5.1) 06/13/20 05:16 Chloride 106 mmol/L (98-107) 06/13/20 05:16 Carbon Dioxide 24.0 mmol/L (21-32) 06/13/20 05:16 BUN 22 mg/dL (7-18) H 06/13/20 05:16 Creatinine 2.19 mg/dL (0.55-1.02) H 06/13/20 05:16 Est GFR (MDRD) Af Amer 28 (>60) L 06/13/20 05:16 Est GFR (MDRD) Non-Af 23 (>60) L 06/13/20 05:16 Glucose 261 mg/dL (65-99) H 06/13/20 05:16 POC Glucose (mg/dL) 149 mg/dL (65-99) H 06/12/20 20:12 Calcium 8.7 mg/dL (8.5-10.1) 06/13/20 05:16 Corrected Calcium 10.2 mg/dL (8.5-10.1) H 06/13/20 05:16 Total Bilirubin 0.30 mg/dL (0.2-1.0) 06/13/20 05:16 AST 47 Units/L (15-37) H 06/13/20 05:16 ALT 19 Units/L (12-78) 06/13/20 05:16 Alkaline Phosphatase 74 Units/L (46-116) 06/13/20 05:16 Total Protein 4.8 g/dL (6.4-8.2) L 06/13/20 05:16 Albumin 2.1 g/dL (3.4-5.0) L 06/13/20 05:16 Globulin 2.7 g/dL (2.5-4.5) 06/13/20 05:16 Albumin/Globulin Ratio 0.8 Ratio (1.1-2.1) L 06/13/20 05:16 Lipase 45 Units/L (73-393) L 06/10/20 05:40 SARS CoV-2 RNA Rapid RANJAN Negative (NEGATIVE) 06/10/20 07:31 Tissue Pathology To follow 06/11/20 12:30 Plan (1) Rectal mass: Status: Acute Plan: S/P resection with colostomy (2) Nausea and vomiting in adult patient: Status: Acute (3) CKD (chronic kidney disease): Status: Acute Qualifiers: Chronic kidney disease stage: stage 3 (moderate) Chronic kidney disease stage 3 subtype: stage 3b (GFR 30-44) Qualified Code(s): N18.32 - Chronic kidney disease, stage 3b
[2020-06-13] MEDS: LOVENOX INJ 30 MG SYR SC SCH (08:41)
[2020-06-13] MEDS: PROTONIX INJ 40 MG VIAL IVP SCH (08:44)
[2020-06-13] MEDS ORDERED: ATIVAN INJ 2 MG VIAL ONE ×2 (12:14→16:20)
[2020-06-13] MEDS ORDERED: HALDOL INJ IM PRN (12:20)
[2020-06-13] MEDS ORDERED: ATIVAN INJ 2 MG VIAL IVP ONE ×2 (12:29→15:30)
--- NOTE | 2020-06-13 15:07 | CT ---
HISTORYAMSSTUDYBRAIN W/O CONCOMPARISONNoneTECHNIQUEAxial images through the head were performed without contrast. CT scan was performed following ALARA (As low as Reasonably Achievable).Coronal and Sagittal reformatted images were performed.FINDINGSThe ventricles are symmetric. There is no evidence of acute hemorrhage, mass effect or edema, there is minimal periventricular hypo attenuations. There is artifact in the right lateral convexity, no extra-axial collections. There is a small calcification in the right parietal convexity measuring approximately 0.6 centimeters.There is bilateral calcification of the vertebral arteries. There is no hyperdense vessel. No acute hemorrhage mass effect or edema.Bone windows the mastoid cells are clear. There is opacification with thickening of the wall of the sphenoid sinus consistent with chronic sinusitis. There is a 3-5 millimeters midline pituitary gland lesion that could correspond with a Rathke's cleft cyst with mild increased attenuation.IMPRESSIONNo evidence of acute intracranial abnormalities. Mild periventricular white matter disease. 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
--- NOTE | 2020-06-13 16:32 | DR.PROGNOT ---
Hospital Progress Notes - Progress Note for Day of: Progress Note Date: 06/13/20 - Chief Complaint Chief Complaint: PO day 2. confused and disoriented today . urine ou put is much better and tolerating liquid diet ,. BUN/Creat 27/2.5 normal lytes . WBC 8.5 Hgb 8.2. BUN/Creat 22/2.19 BS 183.. [place] 2.1. temp 98.7 - Past Medical Family Social History Past Med/Fam/Surg Hx: No changes since H&P Allergies: Allergies latex Allergy (Verified 06/20/17 07:49) Sulfa (Sulfonamide Antibiotics) [SULFA] Allergy (Verified 06/20/17 07:49) - Review Of Systems ROS: No change since H&P - Vital Signs Vital Signs: Temperature 98.9 F Pulse Rate [Right Brachial] 96 Pulse Rate 92 Respiratory Rate 16 Blood Pressure [Right Arm] 160/83 Blood Pressure 120/65 O2 Sat by Pulse Oximetry 99 - Physical Exam Oriented: Normal Eyes: Normal Ear: Normal Nose: Normal Throat: Normal Respiratory: Normal Cardiovascular: Normal : Other (has guerra in place) GI:Auscultation: Decreased GI:Palpation: Other (colostomy bag noted) GI: Tenderness: Other (colostomy present) Skin: Normal Musculoskeletal: Normal Psychiatric: Normal Mood Description: Anxious Affect: Normal Speech Pattern: Clear, Appropriate - Laboratory and Diagnostics Result Diagrams: 06/13/20 05:16 06/13/20 05:16 Labs: Laboratory WBC 8.5 X10^3/uL (3.6-10.0) 06/13/20 05:16 RBC 2.91 X10^6/uL (3.5-5.4) L 06/13/20 05:16 Hgb 8.2 g/dL (12.0-16.0) L 06/13/20 05:16 Hct 25.0 % (36.0-47.0) L 06/13/20 05:16 MCV 85.7 fL (80.0-100.0) 06/13/20 05:16 MCH 28.3 pg (27.0-34.0) 06/13/20 05:16 MCHC 33.0 g/dL (33.0-35.0) 06/13/20 05:16 RDW 16.0 % (11.6-16.5) 06/13/20 05:16 Plt Count 159 X10^3/uL (150.0-450.0) 06/13/20 05:16 Plt Count Comment Adequate (ADEQUATE) 06/11/20 17:40 MPV 9.2 fL (7.4-11.0) 06/13/20 05:16 Neut % (Auto) 81.6 % (42.0-75.0) H 06/13/20 05:16 Lymph % (Auto) 10.4 % (21.0-51.0) L 06/13/20 05:16 [place] % (Auto) 5.3 % (0.0-13.0) 06/13/20 05:16 Eos % (Auto) 2.4 % (0.9-2.9) 06/13/20 05:16 Baso % (Auto) 0.3 % (0.2-1.0) 06/13/20 05:16 Neut # (Auto) 6.9 x10^3/uL (2.2-4.8) H 06/13/20 05:16 Lymph # (Auto) 0.9 X10^3/uL (1.3-2.9) L 06/13/20 05:16 [place] # (Auto) 0.4 x10^3/uL (0.3-0.8) 06/13/20 05:16 Eos # (Auto) 0.2 x10^3/uL (0.0-0.2) 06/13/20 05:16 Baso # (Auto) 0.0 X10^3/uL (0.0-0.1) 06/13/20 05:16 Absolute Nucleated RBC 0.0 /100WBC 06/13/20 05:16 Total Counted 100 06/11/20 17:40 Neutrophils % (Manual) 87 % (39-76) H 06/11/20 17:40 Band Neutrophils % 4 % (0-10) 06/11/20 17:40 Lymphocytes % (Manual) 5 % (13-43) L 06/11/20 17:40 Monocytes % (Manual) 4 % (4-9) 06/11/20 17:40 Plt Morphology Comment Normal (NORMAL) 06/11/20 17:40 RBC Morphology Normal (NORMAL) 06/11/20 17:40 Sodium 136 mmol/L (136-145) 06/13/20 05:16 Corrected Sodium 140 mmol/L (136-145) 06/13/20 05:16 Potassium 4.7 mmol/L (3.5-5.1) 06/13/20 05:16 Chloride 106 mmol/L (98-107) 06/13/20 05:16 Carbon Dioxide 24.0 mmol/L (21-32) 06/13/20 05:16 BUN 22 mg/dL (7-18) H 06/13/20 05:16 Creatinine 2.19 mg/dL (0.55-1.02) H 06/13/20 05:16 Est GFR (MDRD) Af Amer 28 (>60) L 06/13/20 05:16 Est GFR (MDRD) Non-Af 23 (>60) L 06/13/20 05:16 Glucose 261 mg/dL (65-99) H 06/13/20 05:16 POC Glucose (mg/dL) 183 mg/dL (65-99) H 06/13/20 16:17 Calcium 8.7 mg/dL (8.5-10.1) 06/13/20 05:16 Corrected Calcium 10.2 mg/dL (8.5-10.1) H 06/13/20 05:16 Total Bilirubin 0.30 mg/dL (0.2-1.0) 06/13/20 05:16 AST 47 Units/L (15-37) H 06/13/20 05:16 ALT 19 Units/L (12-78) 06/13/20 05:16 Alkaline Phosphatase 74 Units/L (46-116) 06/13/20 05:16 Total Protein 4.8 g/dL (6.4-8.2) L 06/13/20 05:16 Albumin 2.1 g/dL (3.4-5.0) L 06/13/20 05:16 Globulin 2.7 g/dL (2.5-4.5) 06/13/20 05:16 Albumin/Globulin Ratio 0.8 Ratio (1.1-2.1) L 06/13/20 05:16 Lipase 45 Units/L (73-393) L 06/10/20 05:40 SARS CoV-2 RNA Rapid RANJAN Negative (NEGATIVE) 06/10/20 07:31 Tissue Pathology To follow 06/11/20 12:30 - Assessment and Plan 1: obstructing mass of recto sigmoid ,. s/p Gant's procedure . CKD , DM. HTN ,. same PO care . full liquid. OOB , , DVT prophylaxis , - Problem Patient Problems: Patient Problems Nausea and vomiting in adult patient (Acute) R11.2
[2020-06-13] MEDS: ATIVAN INJ 2 MG VIAL IVP PRN (18:04)
[2020-06-13] MEDS: RESTORIL CAP 30 MG PO SCH ×2 (20:55→21:16)
[2020-06-13] MEDS: GEODON INJ IM PRN (21:16)
[2020-06-13] MEDS ORDERED: ATIVAN INJ 2 MG VIAL IVP SCH (23:40)
[2020-06-14] MEDS: ATIVAN INJ 2 MG VIAL IVP PRN ×3 (02:20→14:56)
[2020-06-14] MEDS: D5 1/2 NS 1000 ML 1,000 ML IV SCH ×4 (02:21→20:31)
[2020-06-14] MEDS: FLAGYL IV PREMIX 500 MG BAG 500 MG/100 ML BAG IV SCH ×4 (02:23→20:25)
--- NOTE | 2020-06-14 05:55 | RAD ---
HISTORYPost bowel resection with [id number] image does not include the lower half of the p elvic cavity or the right lateral abdominal wall.The visualized intestinal gas pattern is normal. The re is no evidence for ileus or obstruction, mass or ascites. Surgical clips right upper quadrant and lower abdominal midline. The lung bases are clear.IMPRESSIONNo acute abdominal abnormality demonstrat ed. Postsurgical findings.Electronically signed by: SALVATORE JASON (Jun 14, 2020 05:52:12)
[2020-06-14 06:18] LABS: BASOPHILS % (AUTO) 0.4 % (0.2-1.0); EOSINOPHILS # (AUTO) 0.3 x10^3/uL (0.0-0.2); EOSINOPHILS % (AUTO) 4.1 % (0.9-2.9); HEMATOCRIT 28.7 % (36.0-47.0); HEMOGLOBIN 9.6 g/dL (12.0-16.0); LYMPHOCYTES # (AUTO) 1.1 X10^3/uL (1.3-2.9); LYMPHOCYTES % (AUTO) 13.7 % (21.0-51.0); MEAN CORPUSCULAR HEMOGLOBIN 28.7 pg (27.0-34.0); MEAN CORPUSCULAR HGB CONC 33.6 g/dL (33.0-35.0); MEAN CORPUSCULAR VOLUME 85.6 fL (80.0-100.0); MONOCYTES # (AUTO) 0.6 x10^3/uL (0.3-0.8); MONOCYTES % (AUTO) 7.1 % (0.0-13.0); NEUTROPHILS # (AUTO) 5.9 x10^3/uL (2.2-4.8); NEUTROPHILS % (AUTO) 74.7 % (42.0-75.0); PLATELET COUNT 149 X10^3/uL (150.0-450.0); RED BLOOD COUNT 3.36 X10^6/uL (3.5-5.4); RED CELL DISTRIBUTION WIDTH 16.1 % (11.6-16.5); WHITE BLOOD COUNT 7.9 X10^3/uL (3.6-10.0)
[2020-06-14 06:24] LABS: ALBUMIN 2.1 g/dL (3.4-5.0); CALCIUM 9.5 mg/dL (8.5-10.1); CARBON DIOXIDE 22.8 mmol/L (21-32); CREATININE 1.89 mg/dL (0.55-1.02)
[2020-06-14] MEDS: GEODON INJ IM PRN (07:43)
[2020-06-14] MEDS: PROTONIX INJ 40 MG VIAL IVP SCH (08:49)
[2020-06-14] MEDS: LOVENOX INJ 30 MG SYR SC SCH (09:02)
[2020-06-14] MEDS: HumuLIN R SC PRN ×2 (12:08→17:42)
--- NOTE | 2020-06-14 12:19 | DR.PROGNOT ---
Hospital Progress Notes - Progress Note for Day of: Progress Note Date: 06/14/20 - Chief Complaint Chief Complaint: PO day 3 . still confused and disoriented today . ( brain CT : no acute findings ). poor oral intake . moderate amount of liquid stool in colostomy bag . urine ou put is much better ,. BUN/Creat 19/1.89 normal lytes . WBC 8.5 Hgb 8.2. BUN/Creat 22/2.19 BS 283.. Albu 2.1. temp 98.7 - Past Medical Family Social History Past Med/Fam/Surg Hx: No changes since H&P Allergies: Allergies latex Allergy (Verified 06/20/17 07:49) Sulfa (Sulfonamide Antibiotics) [SULFA] Allergy (Verified 06/20/17 07:49) - Review Of Systems ROS: No change since H&P - Vital Signs Vital Signs: Temperature 97.5 F Pulse Rate [Right Brachial] 94 Pulse Rate 92 Respiratory Rate 20 Blood Pressure [Right Arm] 189/99 Blood Pressure 120/65 O2 Sat by Pulse Oximetry 97 - Physical Exam Oriented: Normal Eyes: Normal Ear: Normal Nose: Normal Throat: Normal Respiratory: Normal Cardiovascular: Normal : Other (has guerra in place) GI:Auscultation: Decreased GI:Palpation: Other (colostomy bag noted) GI: Tenderness: Other (colostomy present) Skin: Normal Musculoskeletal: Normal Psychiatric: Normal Mood Description: Anxious Affect: Normal Speech Pattern: Unclear - Laboratory and Diagnostics Result Diagrams: 06/14/20 04:18 06/14/20 04:18 Labs: Laboratory WBC 7.9 X10^3/uL (3.6-10.0) 06/14/20 04:18 RBC 3.36 X10^6/uL (3.5-5.4) L 06/14/20 04:18 Hgb 9.6 g/dL (12.0-16.0) L 06/14/20 04:18 Hct 28.7 % (36.0-47.0) L 06/14/20 04:18 MCV 85.6 fL (80.0-100.0) 06/14/20 04:18 MCH 28.7 pg (27.0-34.0) 06/14/20 04:18 MCHC 33.6 g/dL (33.0-35.0) 06/14/20 04:18 RDW 16.1 % (11.6-16.5) 06/14/20 04:18 Plt Count 149 X10^3/uL (150.0-450.0) L 06/14/20 04:18 Plt Count Comment Adequate (ADEQUATE) 06/11/20 17:40 MPV 9.0 fL (7.4-11.0) 06/14/20 04:18 Neut % (Auto) 74.7 % (42.0-75.0) 06/14/20 04:18 Lymph % (Auto) 13.7 % (21.0-51.0) L 06/14/20 04:18 [place] % (Auto) 7.1 % (0.0-13.0) 06/14/20 04:18 Eos % (Auto) 4.1 % (0.9-2.9) H 06/14/20 04:18 Baso % (Auto) 0.4 % (0.2-1.0) 06/14/20 04:18 Neut # (Auto) 5.9 x10^3/uL (2.2-4.8) H 06/14/20 04:18 Lymph # (Auto) 1.1 X10^3/uL (1.3-2.9) L 06/14/20 04:18 [place] # (Auto) 0.6 x10^3/uL (0.3-0.8) 06/14/20 04:18 Eos # (Auto) 0.3 x10^3/uL (0.0-0.2) H 06/14/20 04:18 Baso # (Auto) 0.0 X10^3/uL (0.0-0.1) 06/14/20 04:18 Absolute Nucleated RBC 0.1 /100WBC 06/14/20 04:18 Total Counted 100 06/11/20 17:40 Neutrophils % (Manual) 87 % (39-76) H 06/11/20 17:40 Band Neutrophils % 4 % (0-10) 06/11/20 17:40 Lymphocytes % (Manual) 5 % (13-43) L 06/11/20 17:40 Monocytes % (Manual) 4 % (4-9) 06/11/20 17:40 Plt Morphology Comment Normal (NORMAL) 06/11/20 17:40 RBC Morphology Normal (NORMAL) 06/11/20 17:40 Sodium 139 mmol/L (136-145) 06/14/20 04:18 Corrected Sodium 144 mmol/L (136-145) 06/14/20 04:18 Potassium 5.0 mmol/L (3.5-5.1) 06/14/20 04:18 Chloride 109 mmol/L (98-107) H 06/14/20 04:18 Carbon Dioxide 22.8 mmol/L (21-32) 06/14/20 04:18 BUN 19 mg/dL (7-18) H 06/14/20 04:18 Creatinine 1.89 mg/dL (0.55-1.02) H 06/14/20 04:18 Est GFR (MDRD) Af Amer 33 (>60) L 06/14/20 04:18 Est GFR (MDRD) Non-Af 27 (>60) L 06/14/20 04:18 Glucose 315 mg/dL (65-99) H 06/14/20 04:18 POC Glucose (mg/dL) 286 mg/dL (65-99) H 06/14/20 11:12 Calcium 9.5 mg/dL (8.5-10.1) 06/14/20 04:18 Corrected Calcium 11.0 mg/dL (8.5-10.1) H 06/14/20 04:18 Total Bilirubin 0.40 mg/dL (0.2-1.0) 06/14/20 04:18 AST 44 Units/L (15-37) H 06/14/20 04:18 ALT 22 Units/L (12-78) 06/14/20 04:18 Alkaline Phosphatase 80 Units/L (46-116) 06/14/20 04:18 Total Protein 5.0 g/dL (6.4-8.2) L 06/14/20 04:18 Albumin 2.1 g/dL (3.4-5.0) L 06/14/20 04:18 Globulin 2.9 g/dL (2.5-4.5) 06/14/20 04:18 Albumin/Globulin Ratio 0.7 Ratio (1.1-2.1) L 06/14/20 04:18 Lipase 45 Units/L (73-393) L 06/10/20 05:40 SARS CoV-2 RNA Rapid RANJAN Negative (NEGATIVE) 06/10/20 07:31 Tissue Pathology To follow 06/11/20 12:30 - Assessment and Plan 1: obstructing mass of recto sigmoid ,. s/p Gant's procedure . post operative agitation and confusion . CKD , DM. HTN ,. same PO care . soft diet as tolerated .. OOB , , DVT prophylaxis , - Problem Patient Problems: Patient Problems Nausea and vomiting in adult patient (Acute) R11.2
[2020-06-14] MEDS: RESTORIL CAP 30 MG PO SCH (20:31)
[2020-06-15] MEDS: ATIVAN INJ 2 MG VIAL IVP PRN ×3 (01:58→22:14)
[2020-06-15] MEDS: D5 1/2 NS 1000 ML 1,000 ML IV SCH ×4 (02:01→20:15)
[2020-06-15] MEDS: FLAGYL IV PREMIX 500 MG BAG 500 MG/100 ML BAG IV SCH ×4 (02:45→20:15)
[2020-06-15] MEDS: HumuLIN R SC PRN ×3 (05:52→20:42)
[2020-06-15 06:30] LABS: BASOPHILS % (AUTO) 0.3 % (0.2-1.0); EOSINOPHILS # (AUTO) 0.3 x10^3/uL (0.0-0.2); EOSINOPHILS % (AUTO) 3.9 % (0.9-2.9); HEMATOCRIT 27.9 % (36.0-47.0); HEMOGLOBIN 9.3 g/dL (12.0-16.0); LYMPHOCYTES % (AUTO) 13.3 % (21.0-51.0); MEAN CORPUSCULAR HGB CONC 33.2 g/dL (33.0-35.0); MEAN CORPUSCULAR VOLUME 84.5 fL (80.0-100.0); MEAN PLATELET VOLUME 8.4 fL (7.4-11.0); MONOCYTES # (AUTO) 0.3 x10^3/uL (0.3-0.8); MONOCYTES % (AUTO) 4.4 % (0.0-13.0); NEUTROPHILS # (AUTO) 5.7 x10^3/uL (2.2-4.8); NEUTROPHILS % (AUTO) 78.1 % (42.0-75.0); PLATELET COUNT 189 X10^3/uL (150.0-450.0); RED CELL DISTRIBUTION WIDTH 16.1 % (11.6-16.5); WHITE BLOOD COUNT 7.3 X10^3/uL (3.6-10.0)
[2020-06-15 06:35] LABS: ALBUMIN 2.2 g/dL (3.4-5.0); CALCIUM 9.1 mg/dL (8.5-10.1); CARBON DIOXIDE 25.1 mmol/L (21-32); COR CA(FOR HYPOALB) 10.5 mg/dL (8.5-10.1); CREATININE 1.62 mg/dL (0.55-1.02); TOTAL PROTEIN 5.1 g/dL (6.4-8.2)
--- NOTE | 2020-06-15 06:53 | RAD ---
HISTORYPost bowel resection colostomySTUDYKUBCOMPARISONMar2020FINDINGSContinued nonobstructed gas pattern without evidence for localized ileus. No mass formation or ascites. Electronic device obscures the right upper quadrant. Surgical clips consistent with cholecystectomy. Surgical clips noted in the lower abdomen midline.IMPRESSIONNo significant interval change or acute intestinal abnormality demonstrated.Electronically signed by: SALVATORE JASON (Jun 15, 2020 06:51:09)
[2020-06-15] MEDS: GEODON INJ IM PRN (08:21)
[2020-06-15] MEDS: LOVENOX INJ 30 MG SYR SC SCH (09:19)
[2020-06-15] MEDS: PROTONIX INJ 40 MG VIAL IVP SCH (09:19)
[2020-06-15] MEDS: ZOFRAN INJ 4 MG VIAL IVP PRN (10:57)
--- NOTE | 2020-06-15 12:30 | DR.PROGNOT ---
Hospital Progress Notes - Progress Note for Day of: Progress Note Date: 06/15/20 - Chief Complaint Chief Complaint: PO day 4 . still confused and disoriented . ( brain CT : no acute findings ). poor oral intake . moderate amount of liquid stool in colostomy bag . urine ou put is much better ,. BUN/Creat 19/1.89 normal lytes . WBC 8.5 Hgb 8.2. BUN/Creat 13/1.6 BS 283.. [place] 2.1. temp 98.7 - Past Medical Family Social History Past Med/Fam/Surg Hx: No changes since H&P Allergies: Allergies latex Allergy (Verified 06/20/17 07:49) Sulfa (Sulfonamide Antibiotics) [SULFA] Allergy (Verified 06/20/17 07:49) - Review Of Systems ROS: No change since H&P - Vital Signs Vital Signs: Temperature 97.9 F Pulse Rate [Right Brachial] 88 Pulse Rate 88 Respiratory Rate 12 Blood Pressure [Right Arm] 160/71 Blood Pressure 120/65 O2 Sat by Pulse Oximetry 99 - Physical Exam Oriented: Normal Eyes: Normal Ear: Normal Nose: Normal Throat: Normal Respiratory: Normal Cardiovascular: Normal : Other (has guerra in place) GI:Auscultation: Normal GI:Palpation: Other (soft, flat abdomen , BS+ .. no stool in colostomy bag yet .) GI: Tenderness: Other (colostomy present) Skin: Normal Musculoskeletal: Normal Psychiatric: Normal Mood Description: Anxious Affect: Normal Speech Pattern: Inappropriate, Delayed - Laboratory and Diagnostics Result Diagrams: 06/15/20 05:52 06/15/20 05:52 Labs: Laboratory WBC 7.3 X10^3/uL (3.6-10.0) 06/15/20 05:52 RBC 3.30 X10^6/uL (3.5-5.4) L 06/15/20 05:52 Hgb 9.3 g/dL (12.0-16.0) L 06/15/20 05:52 Hct 27.9 % (36.0-47.0) L 06/15/20 05:52 MCV 84.5 fL (80.0-100.0) 06/15/20 05:52 MCH 28.0 pg (27.0-34.0) 06/15/20 05:52 MCHC 33.2 g/dL (33.0-35.0) 06/15/20 05:52 RDW 16.1 % (11.6-16.5) 06/15/20 05:52 Plt Count 189 X10^3/uL (150.0-450.0) 06/15/20 05:52 Plt Count Comment Adequate (ADEQUATE) 06/11/20 17:40 MPV 8.4 fL (7.4-11.0) 06/15/20 05:52 Neut % (Auto) 78.1 % (42.0-75.0) H 06/15/20 05:52 Lymph % (Auto) 13.3 % (21.0-51.0) L 06/15/20 05:52 [place] % (Auto) 4.4 % (0.0-13.0) 06/15/20 05:52 Eos % (Auto) 3.9 % (0.9-2.9) H 06/15/20 05:52 Baso % (Auto) 0.3 % (0.2-1.0) 06/15/20 05:52 Neut # (Auto) 5.7 x10^3/uL (2.2-4.8) H 06/15/20 05:52 Lymph # (Auto) 1.0 X10^3/uL (1.3-2.9) L 06/15/20 05:52 [place] # (Auto) 0.3 x10^3/uL (0.3-0.8) 06/15/20 05:52 Eos # (Auto) 0.3 x10^3/uL (0.0-0.2) H 06/15/20 05:52 Baso # (Auto) 0.0 X10^3/uL (0.0-0.1) 06/15/20 05:52 Absolute Nucleated RBC 0.0 /100WBC 06/15/20 05:52 Total Counted 100 06/11/20 17:40 Neutrophils % (Manual) 87 % (39-76) H 06/11/20 17:40 Band Neutrophils % 4 % (0-10) 06/11/20 17:40 Lymphocytes % (Manual) 5 % (13-43) L 06/11/20 17:40 Monocytes % (Manual) 4 % (4-9) 06/11/20 17:40 Plt Morphology Comment Normal (NORMAL) 06/11/20 17:40 RBC Morphology Normal (NORMAL) 06/11/20 17:40 Sodium 140 mmol/L (136-145) 06/15/20 05:52 Corrected Sodium 144 mmol/L (136-145) 06/15/20 05:52 Potassium 3.8 mmol/L (3.5-5.1) 06/15/20 05:52 Chloride 107 mmol/L (98-107) 06/15/20 05:52 Carbon Dioxide 25.1 mmol/L (21-32) 06/15/20 05:52 BUN 13 mg/dL (7-18) 06/15/20 05:52 Creatinine 1.62 mg/dL (0.55-1.02) H 06/15/20 05:52 Est GFR (MDRD) Af Amer 39 (>60) L 06/15/20 05:52 Est GFR (MDRD) Non-Af 32 (>60) L 06/15/20 05:52 Glucose 276 mg/dL (65-99) H 06/15/20 05:52 POC Glucose (mg/dL) 229 mg/dL (65-99) H 06/15/20 10:56 Calcium 9.1 mg/dL (8.5-10.1) 06/15/20 05:52 Corrected Calcium 10.5 mg/dL (8.5-10.1) H 06/15/20 05:52 Total Bilirubin 0.50 mg/dL (0.2-1.0) 06/15/20 05:52 AST 22 Units/L (15-37) 06/15/20 05:52 ALT 19 Units/L (12-78) 06/15/20 05:52 Alkaline Phosphatase 75 Units/L (46-116) 06/15/20 05:52 Total Protein 5.1 g/dL (6.4-8.2) L 06/15/20 05:52 Albumin 2.2 g/dL (3.4-5.0) L 06/15/20 05:52 Globulin 2.9 g/dL (2.5-4.5) 06/15/20 05:52 Albumin/Globulin Ratio 0.8 Ratio (1.1-2.1) L 06/15/20 05:52 Lipase 45 Units/L (73-393) L 06/10/20 05:40 SARS CoV-2 RNA Rapid RANJAN Negative (NEGATIVE) 06/10/20 07:31 Tissue Pathology To follow 06/11/20 12:30 - Assessment and Plan 1: obstructing mass of recto sigmoid ,. s/p Gant's procedure . post operat heidy agitation and confusion . CKD , DM. HTN ,. same PO care . soft diet as tolerated .. OOB , , DVT prophylaxis , may need TPN in no improvement in oral intake .. - Problem Patient Problems: Patient Problems Nausea and vomiting in adult patient (Acute) R11.2
[2020-06-15] MEDS: RESTORIL CAP 30 MG PO SCH (20:15)
--- NOTE | 2020-06-15 21:14 | PCM.PROG ---
Progress Note - Progress Note for Day of Date of Exam: 06/14/20 - Subjective Subjective: Pt is a 80 year old female patient of . She has a past medical history of DMT2, CKD. She was admitted due to a recto-sigmoid mass. She is s/p mass resection with colostomy, POD#3. This morning patient is in bed appearing fatigued. Staff reports that patient has been very agitated. She has reportedly been yelling down the [place], pulling at IV lines and trying to remove guerra. She is also being followed by , general surgery. Her vitals this morning are: 97.5-96-20-99%-177/62. Labs were obtained. Abnormal lab values include the following: RBC 3.36, HGB 9.6, HCT 28.7, PLT COUNT 149, CHLORIDE 109, BUN 19, CREATININE 1.89, GLUCOSE 315, AST 44, TOTAL PROTEIN 5.0, ALBUMIN 2.1. KUB obtained this morning and revealed: No acute abdominal abnormality demonstrated. Postsurgical findings. She is currently on a full liquid diet. Her colostomy is functioning. She is currently receiving D51/2 NS at 125 ml/hr, flagyl 500mg iv q6h, lovenox 30mg sc daily, Ativan 1mg iv tid prn, Humulin r sliding scale, Zofran 4mg iv q4h prn, protonix 40mg iv daily, Phenergan 25mg po q8h prn, Restoril 30mg po HS, and Geodon 10mg im bid prn. Physical therapy ordered. Otherwise continue with current treatment plan. Monitor and follow labs/imaging in the morning. Time spent on clinical assessment, reviewing labs and imaging, decision making, and documentation greater than 45 minutes. - Past Medical Family Social History Past Med/Fam/Surg Hx: No changes since H&P Allergies: Allergies latex Allergy (Verified 06/20/17 07:49) Sulfa (Sulfonamide Antibiotics) [SULFA] Allergy (Verified 06/20/17 07:49) - Review of Systems ROS: No change since H&P - Vital Signs and I&O's Vital Signs: Temperature 98.9 F Pulse Rate [Right Brachial] 87 Pulse Rate 88 Respiratory Rate 18 Blood Pressure [Right Arm] 149/69 Blood Pressure 120/65 O2 Sat by Pulse Oximetry 100 Intake and Output: Intake & Output 06/13/20 06/14/20 06/15/20 06/16/20 11:59 11:59 11:59 11:59 Intake Total 3823 / 3823 3400 / 3400 1760 / 1760 1000 / 1000 Output Total 2023 4805 / 4935 2393 / 2393 729 / 729 Balance 1799 / 1799 -1405 / -1535 -633 / -633 271 / 271 - Physical Exam Oriented: Normal Eyes: Normal Ear: Normal Nose: Normal Throat: Normal Respiratory: Normal Cardiovascular: Normal : Other (has guerra in place) Auscultation: Bowel Sounds: Normal Palpation: Normal Tenderness: Other (colostomy present) Skin: Normal Musculoskeletal: Normal Psychiatric: Normal Mood Description: Anxious Affect: Normal Speech Pattern: Inappropriate, Delayed - Laboratory and Diagnostics Result Diagrams: 06/15/20 05:52 06/15/20 05:52 Labs: Laboratory WBC 7.3 X10^3/uL (3.6-10.0) 06/15/20 05:52 RBC 3.30 X10^6/uL (3.5-5.4) L 06/15/20 05:52 Hgb 9.3 g/dL (12.0-16.0) L 06/15/20 05:52 Hct 27.9 % (36.0-47.0) L 06/15/20 05:52 MCV 84.5 fL (80.0-100.0) 06/15/20 05:52 MCH 28.0 pg (27.0-34.0) 06/15/20 05:52 MCHC 33.2 g/dL (33.0-35.0) 06/15/20 05:52 RDW 16.1 % (11.6-16.5) 06/15/20 05:52 Plt Count 189 X10^3/uL (150.0-450.0) 06/15/20 05:52 Plt Count Comment Adequate (ADEQUATE) 06/11/20 17:40 MPV 8.4 fL (7.4-11.0) 06/15/20 05:52 Neut % (Auto) 78.1 % (42.0-75.0) H 06/15/20 05:52 Lymph % (Auto) 13.3 % (21.0-51.0) L 06/15/20 05:52 [place] % (Auto) 4.4 % (0.0-13.0) 06/15/20 05:52 Eos % (Auto) 3.9 % (0.9-2.9) H 06/15/20 05:52 Baso % (Auto) 0.3 % (0.2-1.0) 06/15/20 05:52 Neut # (Auto) 5.7 x10^3/uL (2.2-4.8) H 06/15/20 05:52 Lymph # (Auto) 1.0 X10^3/uL (1.3-2.9) L 06/15/20 05:52 [place] # (Auto) 0.3 x10^3/uL (0.3-0.8) 06/15/20 05:52 Eos # (Auto) 0.3 x10^3/uL (0.0-0.2) H 06/15/20 05:52 Baso # (Auto) 0.0 X10^3/uL (0.0-0.1) 06/15/20 05:52 Absolute Nucleated RBC 0.0 /100WBC 06/15/20 05:52 Total Counted 100 06/11/20 17:40 Neutrophils % (Manual) 87 % (39-76) H 06/11/20 17:40 Band Neutrophils % 4 % (0-10) 06/11/20 17:40 Lymphocytes % (Manual) 5 % (13-43) L 06/11/20 17:40 Monocytes % (Manual) 4 % (4-9) 06/11/20 17:40 Plt Morphology Comment Normal (NORMAL) 06/11/20 17:40 RBC Morphology Normal (NORMAL) 06/11/20 17:40 Sodium 140 mmol/L (136-145) 06/15/20 05:52 Corrected Sodium 144 mmol/L (136-145) 06/15/20 05:52 Potassium 3.8 mmol/L (3.5-5.1) 06/15/20 05:52 Chloride 107 mmol/L (98-107) 06/15/20 05:52 Carbon Dioxide 25.1 mmol/L (21-32) 06/15/20 05:52 BUN 13 mg/dL (7-18) 06/15/20 05:52 Creatinine 1.62 mg/dL (0.55-1.02) H 06/15/20 05:52 Est GFR (MDRD) Af Amer 39 (>60) L 06/15/20 05:52 Est GFR (MDRD) Non-Af 32 (>60) L 06/15/20 05:52 Glucose 276 mg/dL (65-99) H 06/15/20 05:52 POC Glucose (mg/dL) 292 mg/dL (65-99) H 06/15/20 19:58 Calcium 9.1 mg/dL (8.5-10.1) 06/15/20 05:52 Corrected Calcium 10.5 mg/dL (8.5-10.1) H 06/15/20 05:52 Total Bilirubin 0.50 mg/dL (0.2-1.0) 06/15/20 05:52 AST 22 Units/L (15-37) 06/15/20 05:52 ALT 19 Units/L (12-78) 06/15/20 05:52 Alkaline Phosphatase 75 Units/L (46-116) 06/15/20 05:52 Total Protein 5.1 g/dL (6.4-8.2) L 06/15/20 05:52 Albumin 2.2 g/dL (3.4-5.0) L 06/15/20 05:52 Globulin 2.9 g/dL (2.5-4.5) 06/15/20 05:52 Albumin/Globulin Ratio 0.8 Ratio (1.1-2.1) L 06/15/20 05:52 Lipase 45 Units/L (73-393) L 06/10/20 05:40 SARS CoV-2 RNA Rapid RANJAN Negative (NEGATIVE) 06/10/20 07:31 Tissue Pathology To follow 06/11/20 12:30 - Plan (1) Rectal mass Status: Acute Plan: S/P resection with colostomy (2) Status post Saeed's procedure Status: Acute (3) CKD (chronic kidney disease) Status: Acute Qualifiers: Chronic kidney disease stage: unspecified stage Qualified Code(s): N18.9 - Chronic kidney disease, unspecified (4) Nausea and vomiting in adult patient Status: Acute
--- NOTE | 2020-06-15 21:18 | PCM.PROG ---
Progress Note - Progress Note for Day of Date of Exam: 06/15/20 - Subjective Subjective: Pt is a 80 year old female patient of . She has a past medical history of DMT2, CKD. She was admitted due to a recto-sigmoid mass. She is s/p mass resection with colostomy, POD#4. This morning patient is in bed appearing fatigued. Staff reports that patient has been very agitated. She has reportedly been yelling down the [place], pulling at IV lines and trying to remove guerra. She is also being followed by , general surgery. Her vitals this morning are: 97.9-96-20-100%-161/72. Labs were obtained. Abnormal lab values include the following: RBC 3.30, RBC 9.3, HCT 27.9, CHLORIDE 109, BUN 19, CREATININE 1.89, GLUCOSE 315, AST 44, TOTAL PROTEIN 5.0, ALBUMIN 2.1. KUB obta ined this morning and revealed: No significant interval change or acute intestinal abnormality demonstrated. She is currently on a full liquid diet. Her colostomy is functioning. She is currently receiving D51/2 NS at 125 ml/hr, flagyl 500mg iv q6h, lovenox 30mg sc daily, Ativan 1mg iv tid prn, Humulin r sliding scale, Zofran 4mg iv q4h prn, protonix 40mg iv daily, Phenergan 25mg po q8h prn, Restoril 30mg po HS, and Geodon 10mg im bid prn. Physical therapy ordered. Otherwise continue with current treatment plan. Monitor and follow labs/imaging in the morning. Time spent on clinical assessment, reviewing labs and imaging, decision making, and documentation greater than 45 minutes. - Past Medical Family Social History Past Med/Fam/Surg Hx: No changes since H&P Allergies: Allergies latex Allergy (Verified 06/20/17 07:49) Sulfa (Sulfonamide Antibiotics) [SULFA] Allergy (Verified 06/20/17 07:49) - Review of Systems ROS: No change since H&P - Vital Signs and I&O's Vital Signs: Temperature 98.9 F Pulse Rate [Right Brachial] 88 Pulse Rate 88 Respiratory Rate 18 Blood Pressure [Right Arm] 146/72 Blood Pressure 120/65 O2 Sat by Pulse Oximetry 99 Intake and Output: Intake & Output 06/13/20 06/14/20 06/15/20 06/16/20 11:59 11:59 11:59 11:59 Intake Total 3823 / 3823 3400 / 3400 1760 / 1760 1000 / 1000 Output Total 2023 4805 / 4935 2393 / 2393 789 / 789 Balance 1799 / 1799 -1405 / -1535 -633 / -633 / 211 - Physical Exam Oriented: Normal Eyes: Normal Ear: Normal Nose: Normal Throat: Normal Respiratory: Normal Cardiovascular: Normal : Other (has guerra in place) Auscultation: Bowel Sounds: Normal Palpation: Normal Tenderness: Other (colostomy present) Skin: Normal Musculoskeletal: Normal Psychiatric: Normal Mood Description: Anxious Affect: Normal Speech Pattern: Inappropriate, Delayed - Laboratory and Diagnostics Result Diagrams: 06/15/20 05:52 06/15/20 05:52 Labs: Laboratory WBC 7.3 X10^3/uL (3.6-10.0) 06/15/20 05:52 RBC 3.30 X10^6/uL (3.5-5.4) L 06/15/20 05:52 Hgb 9.3 g/dL (12.0-16.0) L 06/15/20 05:52 Hct 27.9 % (36.0-47.0) L 06/15/20 05:52 MCV 84.5 fL (80.0-100.0) 06/15/20 05:52 MCH 28.0 pg (27.0-34.0) 06/15/20 05:52 MCHC 33.2 g/dL (33.0-35.0) 06/15/20 05:52 RDW 16.1 % (11.6-16.5) 06/15/20 05:52 Plt Count 189 X10^3/uL (150.0-450.0) 06/15/20 05:52 Plt Count Comment Adequate (ADEQUATE) 06/11/20 17:40 MPV 8.4 fL (7.4-11.0) 06/15/20 05:52 Neut % (Auto) 78.1 % (42.0-75.0) H 06/15/20 05:52 Lymph % (Auto) 13.3 % (21.0-51.0) L 06/15/20 05:52 [place] % (Auto) 4.4 % (0.0-13.0) 06/15/20 05:52 Eos % (Auto) 3.9 % (0.9-2.9) H 06/15/20 05:52 Baso % (Auto) 0.3 % (0.2-1.0) 06/15/20 05:52 Neut # (Auto) 5.7 x10^3/uL (2.2-4.8) H 06/15/20 05:52 Lymph # (Auto) 1.0 X10^3/uL (1.3-2.9) L 06/15/20 05:52 [place] # (Auto) 0.3 x10^3/uL (0.3-0.8) 06/15/20 05:52 Eos # (Auto) 0.3 x10^3/uL (0.0-0.2) H 06/15/20 05:52 Baso # (Auto) 0.0 X10^3/uL (0.0-0.1) 06/15/20 05:52 Absolute Nucleated RBC 0.0 /100WBC 06/15/20 05:52 Total Counted 100 06/11/20 17:40 Neutrophils % (Manual) 87 % (39-76) H 06/11/20 17:40 Band Neutrophils % 4 % (0-10) 06/11/20 17:40 Lymphocytes % (Manual) 5 % (13-43) L 06/11/20 17:40 Monocytes % (Manual) 4 % (4-9) 06/11/20 17:40 Plt Morphology Comment Normal (NORMAL) 06/11/20 17:40 RBC Morphology Normal (NORMAL) 06/11/20 17:40 Sodium 140 mmol/L (136-145) 06/15/20 05:52 Corrected Sodium 144 mmol/L (136-145) 06/15/20 05:52 Potassium 3.8 mmol/L (3.5-5.1) 06/15/20 05:52 Chloride 107 mmol/L (98-107) 06/15/20 05:52 Carbon Dioxide 25.1 mmol/L (21-32) 06/15/20 05:52 BUN 13 mg/dL (7-18) 06/15/20 05:52 Creatinine 1.62 mg/dL (0.55-1.02) H 06/15/20 05:52 Est GFR (MDRD) Af Amer 39 (>60) L 06/15/20 05:52 Est GFR (MDRD) Non-Af 32 (>60) L 06/15/20 05:52 Glucose 276 mg/dL (65-99) H 06/15/20 05:52 POC Glucose (mg/dL) 292 mg/dL (65-99) H 06/15/20 19:58 Calcium 9.1 mg/dL (8.5-10.1) 06/15/20 05:52 Corrected Calcium 10.5 mg/dL (8.5-10.1) H 06/15/20 05:52 Total Bilirubin 0.50 mg/dL (0.2-1.0) 06/15/20 05:52 AST 22 Units/L (15-37) 06/15/20 05:52 ALT 19 Units/L (12-78) 06/15/20 05:52 Alkaline Phosphatase 75 Units/L (46-116) 06/15/20 05:52 Total Protein 5.1 g/dL (6.4-8.2) L 06/15/20 05:52 Albumin 2.2 g/dL (3.4-5.0) L 06/15/20 05:52 Globulin 2.9 g/dL (2.5-4.5) 06/15/20 05:52 Albumin/Globulin Ratio 0.8 Ratio (1.1-2.1) L 06/15/20 05:52 Lipase 45 Units/L (73-393) L 06/10/20 05:40 SARS CoV-2 RNA Rapid RANJAN Negative (NEGATIVE) 06/10/20 07:31 Tissue Pathology To follow 06/11/20 12:30 - Plan (1) Rectal mass Status: Acute Plan: S/P resection with colostomy (2) Status post Saeed's procedure Status: Acute (3) CKD (chronic kidney disease) Status: Acute Qualifiers: Chronic kidney disease stage: unspecified stage Qualified Code(s): N18.9 - Chronic kidney disease, unspecified (4) Nausea and vomiting in adult patient Status: Acute
[2020-06-16] MEDS: GEODON INJ IM PRN ×2 (01:13→20:45)
[2020-06-16] MEDS: D5 1/2 NS 1000 ML 1,000 ML IV SCH ×5 (02:03→20:12)
[2020-06-16] MEDS: FLAGYL IV PREMIX 500 MG BAG 500 MG/100 ML BAG IV SCH ×2 (02:27→08:43)
[2020-06-16] MEDS: ATIVAN INJ 2 MG VIAL IVP PRN ×2 (05:01→16:28)
[2020-06-16] MEDS: HumuLIN R SC PRN ×4 (05:35→20:46)
[2020-06-16 06:15] LABS: BASOPHILS % (AUTO) 0.5 % (0.2-1.0); EOSINOPHILS # (AUTO) 0.3 x10^3/uL (0.0-0.2); EOSINOPHILS % (AUTO) 5.4 % (0.9-2.9); HEMATOCRIT 28.5 % (36.0-47.0); HEMOGLOBIN 9.7 g/dL (12.0-16.0); LYMPHOCYTES # (AUTO) 1.2 X10^3/uL (1.3-2.9); LYMPHOCYTES % (AUTO) 19.2 % (21.0-51.0); MEAN CORPUSCULAR HEMOGLOBIN 28.4 pg (27.0-34.0); MEAN CORPUSCULAR HGB CONC 33.8 g/dL (33.0-35.0); MEAN CORPUSCULAR VOLUME 83.8 fL (80.0-100.0); MEAN PLATELET VOLUME 8.3 fL (7.4-11.0); MONOCYTES # (AUTO) 0.5 x10^3/uL (0.3-0.8); MONOCYTES % (AUTO) 7.9 % (0.0-13.0); NEUTROPHILS # (AUTO) 4.1 x10^3/uL (2.2-4.8); PLATELET COUNT 188 X10^3/uL (150.0-450.0); RED CELL DISTRIBUTION WIDTH 16.4 % (11.6-16.5); WHITE BLOOD COUNT 6.1 X10^3/uL (3.6-10.0)
[2020-06-16 06:27] LABS: ALBUMIN 2.1 g/dL (3.4-5.0); CALCIUM 9.2 mg/dL (8.5-10.1); CARBON DIOXIDE 25.6 mmol/L (21-32); COR CA(FOR HYPOALB) 10.7 mg/dL (8.5-10.1); CREATININE 1.51 mg/dL (0.55-1.02); TOTAL PROTEIN 4.8 g/dL (6.4-8.2)
--- NOTE | 2020-06-16 07:29 | RAD ---
HISTORYS/P BOWEL RESSECTION WITH [id number], 2 imagesFINDINGSSurgical clips in the lower abdome n and pelvis. Cholecystectomy. Nonobstructive bowel gas pattern. No pneumatosis, free air, or portal venous gas. Lung bases are clear.IMPRESSIONNonobstructive bowel gas pattern.Electronically signed by: Bradley Longoria (Jun 16, 2020 07:26:49)
[2020-06-16] MEDS: PROTONIX INJ 40 MG VIAL IVP SCH (08:40)
[2020-06-16] MEDS: LOVENOX INJ 30 MG SYR SC SCH (08:44)
[2020-06-16] MEDS ORDERED: PHARMACY CONSULT - TPN XX SCH (09:00)
[2020-06-16] MEDS ORDERED: MICRO K EXTEN CAP 10 MEQ PO PRN (09:12)
[2020-06-16] MEDS ORDERED: POTASSIUM CHL 60 MEQ/NS 0.45% 500 ML IV PRN (09:12)
[2020-06-16] MEDS ORDERED: KLOR-CON PO PRN (09:12)
[2020-06-16] MEDS ORDERED: POTASSIUM CHLORIDE LIQ 20 MEQ UDC PO PRN (09:12)
[2020-06-16] MEDS ORDERED: POTASSIUM CHL 40 MEQ/NS 0.45% 500 ML IV PRN (09:12)
[2020-06-16] MEDS ORDERED: K-DUR TAB 20 MEQ PO PRN (09:12)
--- NOTE | 2020-06-16 10:08 | PCM.PROG ---
Progress Note Progress Note for Day of Date of Exam: 06/16/20 Subjective Subjective: Pt is a 80 year old female past medical history of DMT2, CKD. She was admitted due to a recto-sigmoid mass. She is s/p mass resection with colostomy, POD#5. Pt this morning laying in bed comfortably. She appears fatigued and not answering questions. Staff reports patient was very agitated ov er the weekend, yelling down the [place], pulling at IV lines and trying to remove guerra. She has had poor po intake due to mental status. She is followed by Dr. Guardado, general surgery. Labs/imaging: Wbc 6.1, Hgb 9.7, Plt 188, Na 143, K 3.4, Cr 1.51, Glucose 300, KUB obtained this morning and revealed: No significant interval change or acute intestinal abnormality demonstrated. Patient is currently on full liquid diet. Her colostomy is functioning. Receiving D5 1/2 NS at 75 ml/hr, flagyl 500mg iv q6h, lovenox 30mg sc daily, Ativan 1mg iv tid prn, Humulin r sliding scale, Zofran 4mg iv q4h prn, protonix 40mg iv daily, Phenergan 25mg po q8h prn, Restoril 30mg po HS, and Geodon 10mg im bid prn. Physical therapy ordered. Due to poor nutritional intake, will consult pharmacy for TPN. Encourage out of bed as tolerated and physical therapy, bladder training. Discontinue flagyl. Otherwise continue with current treatment plan. Monitor and follow labs/imaging in the morning. Past Medical Family Social History Past Med/Fam/Surg Hx: No changes since H&P Allergies: Allergies latex Allergy (Verified 06/20/17 07:49) Sulfa (Sulfonamide Antibiotics) [SULFA] Allergy (Verified 06/20/17 07:49) Review of Systems ROS: No change since H&P Vital Signs and I&O's Vital Signs: Temperature 97.4 F Pulse Rate [Right Brachial] 82 Pulse Rate 88 Respiratory Rate 16 Blood Pressure [Right Arm] 174/71 Blood Pressure 120/65 O2 Sat by Pulse Oximetry 97 Intake and Output: Intake & Output 06/13/20 06/14/20 06/15/20 06/16/20 23:59 23:59 23:59 23:59 Intake Total 4933 / 4933 1675 / 1675 2646 / 2646 789 / 789 Output Total 3461 / 3461 3288 / 3313 2234 / 2364 975 / 975 Balance 1472 / 1472 -1613 / -1638 412 / 282 -186 / -186 Physical Exam Oriented: Normal Eyes: Normal Ear: Normal Nose: Normal Throat: Normal Respiratory: Normal Cardiovascular: Normal : Other (has guerra in place ) Auscultation: Bowel Sounds: Normal Tenderness: Other (colostomy present ) Skin: Normal Musculoskeletal: Normal Psychiatric: Normal Mood Description: Anxious Affect: Normal Speech Pattern: Inappropriate and Delayed Laboratory and Diagnostics Result Diagrams: 06/16/20 05:45 06/16/20 05:45 Labs: Laboratory WBC 6.1 X10^3/uL (3.6-10.0) 06/16/20 05:45 RBC 3.40 X10^6/uL (3.5-5.4) L 06/16/20 05:45 Hgb 9.7 g/dL (12.0-16.0) L 06/16/20 05:45 Hct 28.5 % (36.0-47.0) L 06/16/20 05:45 MCV 83.8 fL (80.0-100.0) 06/16/20 05:45 MCH 28.4 pg (27.0-34.0) 06/16/20 05:45 MCHC 33.8 g/dL (33.0-35.0) 06/16/20 05:45 RDW 16.4 % (11.6-16.5) 06/16/20 05:45 Plt Count 188 X10^3/uL (150.0-450.0) 06/16/20 05:45 Plt Count Comment Adequate (ADEQUATE) 06/11/20 17:40 MPV 8.3 fL (7.4-11.0) 06/16/20 05:45 Neut % (Auto) 67.0 % (42.0-75.0) 06/16/20 05:45 Lymph % (Auto) 19.2 % (21.0-51.0) L 06/16/20 05:45 [place] % (Auto) 7.9 % (0.0-13.0) 06/16/20 05:45 Eos % (Auto) 5.4 % (0.9-2.9) H 06/16/20 05:45 Baso % (Auto) 0.5 % (0.2-1.0) 06/16/20 05:45 Neut # (Auto) 4.1 x10^3/uL (2.2-4.8) 06/16/20 05:45 Lymph # (Auto) 1.2 X10^3/uL (1.3-2.9) L 06/16/20 05:45 [place] # (Auto) 0.5 x10^3/uL (0.3-0.8) 06/16/20 05:45 Eos # (Auto) 0.3 x10^3/uL (0.0-0.2) H 06/16/20 05:45 Baso # (Auto) 0.0 X10^3/uL (0.0-0.1) 06/16/20 05:45 Absolute Nucleated RBC 0.0 /100WBC 06/16/20 05:45 Total Counted 100 06/11/20 17:40 Neutrophils % (Manual) 87 % (39-76) H 06/11/20 17:40 Band Neutrophils % 4 % (0-10) 06/11/20 17:40 Lymphocytes % (Manual) 5 % (13-43) L 06/11/20 17:40 Monocytes % (Manual) 4 % (4-9) 06/11/20 17:40 Plt Morphology Comment Normal (NORMAL) 06/11/20 17:40 RBC Morphology Normal (NORMAL) 06/11/20 17:40 Sodium 143 mmol/L (136-145) 06/16/20 05:45 Corrected Sodium 148 mmol/L (136-145) H 06/16/20 05:45 Potassium 3.4 mmol/L (3.5-5.1) L 06/16/20 05:45 Chloride 108 mmol/L (98-107) H 06/16/20 05:45 Carbon Dioxide 25.6 mmol/L (21-32) 06/16/20 05:45 BUN 10 mg/dL (7-18) 06/16/20 05:45 Creatinine 1.51 mg/dL (0.55-1.02) H 06/16/20 05:45 Est GFR (MDRD) Af Amer 42 (>60) L 06/16/20 05:45 Est GFR (MDRD) Non-Af 35 (>60) L 06/16/20 05:45 Glucose 300 mg/dL (65-99) H 06/16/20 05:45 POC Glucose (mg/dL) 237 mg/dL (65-99) H 06/16/20 05:19 Calcium 9.2 mg/dL (8.5-10.1) 06/16/20 05:45 Corrected Calcium 10.7 mg/dL (8.5-10.1) H 06/16/20 05:45 Magnesium 1.6 mg/dL (1.7-2.9) L 06/16/20 05:45 Total Bilirubin 0.30 mg/dL (0.2-1.0) 06/16/20 05:45 AST 16 Units/L (15-37) 06/16/20 05:45 ALT 16 Units/L (12-78) 06/16/20 05:45 Alkaline Phosphatase 68 Units/L (46-116) 06/16/20 05:45 Total Protein 4.8 g/dL (6.4-8.2) L 06/16/20 05:45 Albumin 2.1 g/dL (3.4-5.0) L 06/16/20 05:45 Globulin 2.7 g/dL (2.5-4.5) 06/16/20 05:45 Albumin/Globulin Ratio 0.8 Ratio (1.1-2.1) L 06/16/20 05:45 Prealbumin 10.9 mg/dL (18-35.7) L 06/16/20 05:45 Lipase 45 Units/L (73-393) L 06/10/20 05:40 SARS CoV-2 RNA Rapid RANJAN Negative (NEGATIVE) 06/10/20 07:31 Tissue Pathology To follow 06/11/20 12:30 Plan (1) Rectal mass: Status: Acute Plan: S/P resection with colostomy (2) Status post Saeed's procedure: Status: Acute (3) CKD (chronic kidney disease): Status: Acute Qualifiers: Chronic kidney disease stage: unspecified stage Qualified Code(s): N18.9 - Chronic kidney disease, unspecified (4) Nausea and vomiting in adult patient: Status: Acute
[2020-06-16] MEDS: MVI IV SCH ×12 (11:16→11:18)
[2020-06-16] MEDS: LIPOSYN III 20% IV SCH ×12 (11:16→11:18)
[2020-06-16] MEDS: [UNRECOGNIZED DRUG - OTHER] IV SCH ×12 (11:16→11:18)
[2020-06-16] MEDS: CLINIMIX IV SCH ×12 (11:16→11:18)
[2020-06-16] MEDS ORDERED: K-RIDER 10 MEQ/NS 100 ML 20 MEQ/200 ML BAG IV ONE (11:29)
[2020-06-16] MEDS ORDERED: MAGNESIUM SULFATE 1 GRAM/100 mL PREMIX 2 G/200 ML BAG IV ONE (11:30)
[2020-06-16] MEDS: MAGNESIUM SULFATE 1 GRAM/100 mL PREMIX 1 GM/100 ML BAG IV PRN ×2 (11:32→12:38)
[2020-06-16] MEDS: K-RIDER 10 MEQ/NS 100 ML 10 MEQ/100 ML BAG IV PRN ×2 (14:48→15:55)
[2020-06-16] MEDS ORDERED: DEXTROSE 10% 1,000 ML IV PRN (15:23)
[2020-06-16 16:31] LABS: PHOSPHORUS 1.1 mg/dL (2.6-4.7)
--- NOTE | 2020-06-16 16:54 | DR.PROGNOT ---
Hospital Progress Notes - Progress Note for Day of: Progress Note Date: 06/16/20 - Chief Complaint Chief Complaint: PO day 5 . mo. more alert today and talking . poor oral intake . colostomy is functioning with large amount of liguid stool in the bag . urine ou put is much better ,. BUN/Creat 19/1.89 normal lytes . WBC 8.5 Hgb 8.2. BUN/Creat 13/1.6 BS 283.. [place] 2.1. temp 98.7 - Past Medical Family Social History Past Med/Fam/Surg Hx: No changes since H&P Allergies: Allergies latex Allergy (Verified 06/20/17 07:49) Sulfa (Sulfonamide Antibiotics) [SULFA] Allergy (Verified 06/20/17 07:49) - Review Of Systems ROS: No change since H&P - Vital Signs Vital Signs: Temperature 97.4 F Pulse Rate [Right Brachial] 80 Pulse Rate 88 Respiratory Rate 16 Blood Pressure [Right Arm] 182/80 Blood Pressure 120/65 O2 Sat by Pulse Oximetry 100 - Physical Exam Oriented: Normal Eyes: Normal Ear: Normal Nose: Normal Throat: Normal Respiratory: Normal Cardiovascular: Normal : Other (has guerra in place) GI:Auscultation: Normal GI:Palpation: Normal GI: Tenderness: Other (soft abdomen . no infection and good functioning colostomy ..) Skin: Normal Musculoskeletal: Normal Psychiatric: Normal Mood Description: Anxious Affect: Normal Speech Pattern: Inappropriate, Delayed - Laboratory and Diagnostics Result Diagrams: 06/16/20 05:45 06/16/20 05:45 Labs: Laboratory WBC 6.1 X10^3/uL (3.6-10.0) 06/16/20 05:45 RBC 3.40 X10^6/uL (3.5-5.4) L 06/16/20 05:45 Hgb 9.7 g/dL (12.0-16.0) L 06/16/20 05:45 Hct 28.5 % (36.0-47.0) L 06/16/20 05:45 MCV 83.8 fL (80.0-100.0) 06/16/20 05:45 MCH 28.4 pg (27.0-34.0) 06/16/20 05:45 MCHC 33.8 g/dL (33.0-35.0) 06/16/20 05:45 RDW 16.4 % (11.6-16.5) 06/16/20 05:45 Plt Count 188 X10^3/uL (150.0-450.0) 06/16/20 05:45 Plt Count Comment Adequate (ADEQUATE) 06/11/20 17:40 MPV 8.3 fL (7.4-11.0) 06/16/20 05:45 Neut % (Auto) 67.0 % (42.0-75.0) 06/16/20 05:45 Lymph % (Auto) 19.2 % (21.0-51.0) L 06/16/20 05:45 [place] % (Auto) 7.9 % (0.0-13.0) 06/16/20 05:45 Eos % (Auto) 5.4 % (0.9-2.9) H 06/16/20 05:45 Baso % (Auto) 0.5 % (0.2-1.0) 06/16/20 05:45 Neut # (Auto) 4.1 x10^3/uL (2.2-4.8) 06/16/20 05:45 Lymph # (Auto) 1.2 X10^3/uL (1.3-2.9) L 06/16/20 05:45 [place] # (Auto) 0.5 x10^3/uL (0.3-0.8) 06/16/20 05:45 Eos # (Auto) 0.3 x10^3/uL (0.0-0.2) H 06/16/20 05:45 Baso # (Auto) 0.0 X10^3/uL (0.0-0.1) 06/16/20 05:45 Absolute Nucleated RBC 0.0 /100WBC 06/16/20 05:45 Total Counted 100 06/11/20 17:40 Neutrophils % (Manual) 87 % (39-76) H 06/11/20 17:40 Band Neutrophils % 4 % (0-10) 06/11/20 17:40 Lymphocytes % (Manual) 5 % (13-43) L 06/11/20 17:40 Monocytes % (Manual) 4 % (4-9) 06/11/20 17:40 Plt Morphology Comment Normal (NORMAL) 06/11/20 17:40 RBC Morphology Normal (NORMAL) 06/11/20 17:40 Sodium 143 mmol/L (136-145) 06/16/20 05:45 Corrected Sodium 148 mmol/L (136-145) H 06/16/20 05:45 Potassium 3.4 mmol/L (3.5-5.1) L 06/16/20 05:45 Chloride 108 mmol/L (98-107) H 06/16/20 05:45 Carbon Dioxide 25.6 mmol/L (21-32) 06/16/20 05:45 BUN 10 mg/dL (7-18) 06/16/20 05:45 Creatinine 1.51 mg/dL (0.55-1.02) H 06/16/20 05:45 Est GFR (MDRD) Af Amer 42 (>60) L 06/16/20 05:45 Est GFR (MDRD) Non-Af 35 (>60) L 06/16/20 05:45 Glucose 300 mg/dL (65-99) H 06/16/20 05:45 POC Glucose (mg/dL) 330 mg/dL (65-99) H 06/16/20 16:00 Calcium 9.2 mg/dL (8.5-10.1) 06/16/20 05:45 Corrected Calcium 10.7 mg/dL (8.5-10.1) H 06/16/20 05:45 Phosphorus 1.1 mg/dL (2.6-4.7) L 06/16/20 16:07 Magnesium 2.0 mg/dL (1.7-2.9) 06/16/20 16:07 Total Bilirubin 0.30 mg/dL (0.2-1.0) 06/16/20 05:45 AST 16 Units/L (15-37) 06/16/20 05:45 ALT 16 Units/L (12-78) 06/16/20 05:45 Alkaline Phosphatase 68 Units/L (46-116) 06/16/20 05:45 Total Protein 4.8 g/dL (6.4-8.2) L 06/16/20 05:45 Albumin 2.1 g/dL (3.4-5.0) L 06/16/20 05:45 Globulin 2.7 g/dL (2.5-4.5) 06/16/20 05:45 Albumin/Globulin Ratio 0.8 Ratio (1.1-2.1) L 06/16/20 05:45 Prealbumin 10.9 mg/dL (18-35.7) L 06/16/20 05:45 Triglycerides 120 mg/dL (0-150) 06/16/20 16:07 Lipase 45 Units/L (73-393) L 06/10/20 05:40 SARS CoV-2 RNA Rapid RANJAN Negative (NEGATIVE) 06/10/20 07:31 Tissue Pathology To follow 06/11/20 12:30 - Assessment and Plan 1: obstructing mass of recto sigmoid ,. s/p Gant's procedure . post oper ative agitation and confusion . CKD , DM. HTN ,. same PO care . soft diet as tolerated .. OOB , , DVT prophylaxis , may need TPN if no improvement in oral intake .. - Problem Patient Problems: Patient Problems Status post Saeed's procedure (Acute) Z93.3 CKD (chronic kidney disease) (Acute) N18.9 Rectal mass (Acute) K62.89 Nausea and vomiting in adult patient (Acute) R11.2
[2020-06-16] MEDS: RESTORIL CAP 30 MG PO SCH (21:20)
[2020-06-17] MEDS: D5 1/2 NS 1000 ML 1,000 ML IV SCH ×2 (01:33→11:41)
[2020-06-17] MEDS: ATIVAN INJ 2 MG VIAL IVP PRN (02:32)
[2020-06-17 05:31] LABS: BASOPHILS % (AUTO) 0.3 % (0.2-1.0); EOSINOPHILS # (AUTO) 0.2 x10^3/uL (0.0-0.2); EOSINOPHILS % (AUTO) 4.4 % (0.9-2.9); HEMATOCRIT 26.5 % (36.0-47.0); HEMOGLOBIN 8.9 g/dL (12.0-16.0); LYMPHOCYTES # (AUTO) 0.9 X10^3/uL (1.3-2.9); LYMPHOCYTES % (AUTO) 17.5 % (21.0-51.0); MEAN CORPUSCULAR HEMOGLOBIN 28.2 pg (27.0-34.0); MEAN CORPUSCULAR HGB CONC 33.5 g/dL (33.0-35.0); MEAN CORPUSCULAR VOLUME 84.1 fL (80.0-100.0); MEAN PLATELET VOLUME 8.5 fL (7.4-11.0); MONOCYTES # (AUTO) 0.5 x10^3/uL (0.3-0.8); MONOCYTES % (AUTO) 9.1 % (0.0-13.0); NEUTROPHILS # (AUTO) 3.6 x10^3/uL (2.2-4.8); NEUTROPHILS % (AUTO) 68.7 % (42.0-75.0); PLATELET COUNT 195 X10^3/uL (150.0-450.0); RED BLOOD COUNT 3.15 X10^6/uL (3.5-5.4); WHITE BLOOD COUNT 5.2 X10^3/uL (3.6-10.0)
[2020-06-17 05:32] LABS: PREALBUMIN 11.7 mg/dL (18-35.7)
[2020-06-17 05:41] LABS: ALBUMIN 1.9 g/dL (3.4-5.0); CALCIUM 8.8 mg/dL (8.5-10.1); CARBON DIOXIDE 25.9 mmol/L (21-32); COR CA(FOR HYPOALB) 10.5 mg/dL (8.5-10.1); CREATININE 1.43 mg/dL (0.55-1.02); MAGNESIUM 1.8 mg/dL (1.7-2.9); TOTAL PROTEIN 4.5 g/dL (6.4-8.2)
--- NOTE | 2020-06-17 08:21 | PCM.PROG ---
Progress Note Progress Note for Day of Date of Exam: 06/17/20 Subjective Subjective: Pt is a 80 year old female past medical history of DMT2, CKD. She was admitted due to a recto-sigmoid mass. She is s/p mass resection with colostomy(functioning). Pt this morning is sitting in recliner. She is sleeping but awakened briefly. Appears to be fatigued, will adjust medications for patient to be more alert while also continuing to treat agitation. Encourage po intake. Labs/imaging: Wbc 5.2, Hgb 8.9, Plt 195, Na 146, K 3.4, Cr 1.43, Glucose 358. Receiving TPN, lovenox 30mg sc daily, Ativan 1mg iv tid prn, Humulin r sliding scale, Zofran 4mg iv q4h prn, protonix 40mg iv daily, Phenergan 25mg po q8h prn, Restoril 30mg po HS, and Geodon 10mg im bid prn. Encourage out of bed as tolerated and physical therapy, bladder training. Due to some confusion and fatigue will discontinue ativan. Otherwise continue with current treatment plan. Monitor and follow labs/imaging in the morning. Past Medical Family Social History Past Med/Fam/Surg Hx: No changes since H&P Allergies: Allergies latex Allergy (Verified 06/20/17 07:49) Sulfa (Sulfonamide Antibiotics) [SULFA] Allergy (Verified 06/20/17 07:49) Review of Systems ROS: No change since H&P Vital Signs and I&O's Vital Signs: Temperature 97.0 F Pulse Rate [Right Brachial] 88 Pulse Rate 88 Respiratory Rate 18 Blood Pressure [Right Arm] 195/83 Blood Pressure 120/65 O2 Sat by Pulse Oximetry 99 Intake and Output: Intake & Output 06/14/20 06/15/20 06/16/20 06/17/20 23:59 23:59 23:59 23:59 Intake Total 1675 / 1675 2646 / 2646 3039 / 3039 848 / 848 Output Total 3288 / 3313 2234 / 2364 2668 / 2818 759 / 759 Balance -1613 / -1638 412 / 282 371 / 221 89 / 89 Physical Exam Oriented: Normal Eyes: Normal Ear: Normal Nose: Normal Throat: Normal Respiratory: Normal Cardiovascular: Normal : Other (has guerra in place ) Auscultation: Bowel Sounds: Normal Tenderness: Other (soft abdomen . no infection and good functioning colostomy ..) Skin: Normal Musculoskeletal: Normal Psychiatric: Normal Mood Description: Anxious Affect: Normal Speech Pattern: Inappropriate and Delayed Laboratory and Diagnostics Result Diagrams: 06/17/20 04:25 06/17/20 11:19 Labs: Laboratory WBC 5.2 X10^3/uL (3.6-10.0) 06/17/20 04:25 RBC 3.15 X10^6/uL (3.5-5.4) L 06/17/20 04:25 Hgb 8.9 g/dL (12.0-16.0) L 06/17/20 04:25 Hct 26.5 % (36.0-47.0) L 06/17/20 04:25 MCV 84.1 fL (80.0-100.0) 06/17/20 04:25 MCH 28.2 pg (27.0-34.0) 06/17/20 04:25 MCHC 33.5 g/dL (33.0-35.0) 06/17/20 04:25 RDW 16.0 % (11.6-16.5) 06/17/20 04:25 Plt Count 195 X10^3/uL (150.0-450.0) 06/17/20 04:25 Plt Count Comment Adequate (ADEQUATE) 06/11/20 17:40 MPV 8.5 fL (7.4-11.0) 06/17/20 04:25 Neut % (Auto) 68.7 % (42.0-75.0) 06/17/20 04:25 Lymph % (Auto) 17.5 % (21.0-51.0) L 06/17/20 04:25 [place] % (Auto) 9.1 % (0.0-13.0) 06/17/20 04:25 Eos % (Auto) 4.4 % (0.9-2.9) H 06/17/20 04:25 Baso % (Auto) 0.3 % (0.2-1.0) 06/17/20 04:25 Neut # (Auto) 3.6 x10^3/uL (2.2-4.8) 06/17/20 04:25 Lymph # (Auto) 0.9 X10^3/uL (1.3-2.9) L 06/17/20 04:25 [place] # (Auto) 0.5 x10^3/uL (0.3-0.8) 06/17/20 04:25 Eos # (Auto) 0.2 x10^3/uL (0.0-0.2) 06/17/20 04:25 Baso # (Auto) 0.0 X10^3/uL (0.0-0.1) 06/17/20 04:25 Absolute Nucleated RBC 0.0 /100WBC 06/17/20 04:25 Total Counted 100 06/11/20 17:40 Neutrophils % (Manual) 87 % (39-76) H 06/11/20 17:40 Band Neutrophils % 4 % (0-10) 06/11/20 17:40 Lymphocytes % (Manual) 5 % (13-43) L 06/11/20 17:40 Monocytes % (Manual) 4 % (4-9) 06/11/20 17:40 Plt Morphology Comment Normal (NORMAL) 06/11/20 17:40 RBC Morphology Normal (NORMAL) 06/11/20 17:40 Sodium 140 mmol/L (136-145) 06/17/20 04:25 Corrected Sodium 146 mmol/L (136-145) H 06/17/20 04:25 Potassium 3.4 mmol/L (3.5-5.1) L 06/17/20 04:25 Chloride 107 mmol/L (98-107) 06/17/20 04:25 Carbon Dioxide 25.9 mmol/L (21-32) 06/17/20 04:25 BUN 11 mg/dL (7-18) 06/17/20 04:25 Creatinine 1.43 mg/dL (0.55-1.02) H 06/17/20 04:25 Est GFR (MDRD) Af Amer 45 (>60) L 06/17/20 04:25 Est GFR (MDRD) Non-Af 37 (>60) L 06/17/20 04:25 Glucose 358 mg/dL (65-99) H 06/17/20 04:25 POC Glucose (mg/dL) 352 mg/dL (65-99) H 06/17/20 05:32 Calcium 8.8 mg/dL (8.5-10.1) 06/17/20 04:25 Corrected Calcium 10.5 mg/dL (8.5-10.1) H 06/17/20 04:25 Phosphorus 1.1 mg/dL (2.6-4.7) L 06/16/20 16:07 Magnesium 1.8 mg/dL (1.7-2.9) 06/17/20 04:25 Total Bilirubin 0.20 mg/dL (0.2-1.0) 06/17/20 04:25 AST 13 Units/L (15-37) L 06/17/20 04:25 ALT 13 Units/L (12-78) 06/17/20 04:25 Alkaline Phosphatase 60 Units/L (46-116) 06/17/20 04:25 Total Protein 4.5 g/dL (6.4-8.2) L 06/17/20 04:25 Albumin 1.9 g/dL (3.4-5.0) L 06/17/20 04:25 Globulin 2.6 g/dL (2.5-4.5) 06/17/20 04:25 Albumin/Globulin Ratio 0.7 Ratio (1.1-2.1) L 06/17/20 04:25 Prealbumin 11.7 mg/dL (18-35.7) L 06/17/20 04:25 Triglycerides 120 mg/dL (0-150) 06/16/20 16:07 Lipase 45 Units/L (73-393) L 06/10/20 05:40 SARS CoV-2 RNA Rapid RANJAN Negative (NEGATIVE) 06/10/20 07:31 Tissue Pathology To follow 06/11/20 12:30 Plan (1) Rectal mass: Status: Acute Plan: S/P resection with colostomy (2) Status post Saeed's procedure: Status: Acute (3) CKD (chronic kidney disease): Status: Acute Qualifiers: Chronic kidney disease stage: unspecified stage Qualified Code(s): N18.9 - Chronic kidney disease, unspecified (4) Nausea and vomiting in adult patient: Status: Acute
[2020-06-17] MEDS ORDERED: ATIVAN TAB 0.5 MG PO SCH (09:00)
--- NOTE | 2020-06-17 09:00 | DR.PROGNOT ---
Hospital Progress Notes - Progress Note for Day of: Progress Note Date: 06/17/20 - Chief Complaint Chief Complaint: PO day 6 . mo. more alert today and talking . poor oral intake . colostomy is functioning with large amount of liguid stool in the bag . urine ou put is much better ,. BUN/Creat 19/1.89 normal lytes . WBC 5.2 Hgb 8.9. BUN/Creat 11/1.4 BS 352 [place] 1.9. temp 98.7 - Past Medical Family Social History Past Med/Fam/Surg Hx: No changes since H&P Allergies: Allergies latex Allergy (Verified 06/20/17 07:49) Sulfa (Sulfonamide Antibiotics) [SULFA] Allergy (Verified 06/20/17 07:49) - Review Of Systems ROS: No change since H&P - Vital Signs Vital Signs: Temperature 97.0 F Pulse Rate [Right Brachial] 88 Pulse Rate 88 Respiratory Rate 18 Blood Pressure [Right Arm] 195/83 Blood Pressure 120/65 O2 Sat by Pulse Oximetry 99 - Physical Exam Oriented: Normal Eyes: Normal Ear: Normal Nose: Normal Throat: Normal Respiratory: Normal Cardiovascular: Normal : Other (has guerra in place) GI:Auscultation: Normal GI:Palpation: Normal GI: Tenderness: Other (soft abdomen . no infection and good functioning colostomy ..) Skin: Normal Musculoskeletal: Normal Psychiatric: Normal Mood Description: Anxious Affect: Normal Speech Pattern: Inappropriate, Delayed - Laboratory and Diagnostics Result Diagrams: 06/17/20 04:25 06/17/20 04:25 Labs: Laboratory WBC 5.2 X10^3/uL (3.6-10.0) 06/17/20 04:25 RBC 3.15 X10^6/uL (3.5-5.4) L 06/17/20 04:25 Hgb 8.9 g/dL (12.0-16.0) L 06/17/20 04:25 Hct 26.5 % (36.0-47.0) L 06/17/20 04:25 MCV 84.1 fL (80.0-100.0) 06/17/20 04:25 MCH 28.2 pg (27.0-34.0) 06/17/20 04:25 MCHC 33.5 g/dL (33.0-35.0) 06/17/20 04:25 RDW 16.0 % (11.6-16.5) 06/17/20 04:25 Plt Count 195 X10^3/uL (150.0-450.0) 06/17/20 04:25 Plt Count Comment Adequate (ADEQUATE) 06/11/20 17:40 MPV 8.5 fL (7.4-11.0) 06/17/20 04:25 Neut % (Auto) 68.7 % (42.0-75.0) 06/17/20 04:25 Lymph % (Auto) 17.5 % (21.0-51.0) L 06/17/20 04:25 [place] % (Auto) 9.1 % (0.0-13.0) 06/17/20 04:25 Eos % (Auto) 4.4 % (0.9-2.9) H 06/17/20 04:25 Baso % (Auto) 0.3 % (0.2-1.0) 06/17/20 04:25 Neut # (Auto) 3.6 x10^3/uL (2.2-4.8) 06/17/20 04:25 Lymph # (Auto) 0.9 X10^3/uL (1.3-2.9) L 06/17/20 04:25 [place] # (Auto) 0.5 x10^3/uL (0.3-0.8) 06/17/20 04:25 Eos # (Auto) 0.2 x10^3/uL (0.0-0.2) 06/17/20 04:25 Baso # (Auto) 0.0 X10^3/uL (0.0-0.1) 06/17/20 04:25 Absolute Nucleated RBC 0.0 /100WBC 06/17/20 04:25 Total Counted 100 06/11/20 17:40 Neutrophils % (Manual) 87 % (39-76) H 06/11/20 17:40 Band Neutrophils % 4 % (0-10) 06/11/20 17:40 Lymphocytes % (Manual) 5 % (13-43) L 06/11/20 17:40 Monocytes % (Manual) 4 % (4-9) 06/11/20 17:40 Plt Morphology Comment Normal (NORMAL) 06/11/20 17:40 RBC Morphology Normal (NORMAL) 06/11/20 17:40 Sodium 140 mmol/L (136-145) 06/17/20 04:25 Corrected Sodium 146 mmol/L (136-145) H 06/17/20 04:25 Potassium 3.4 mmol/L (3.5-5.1) L 06/17/20 04:25 Chloride 107 mmol/L (98-107) 06/17/20 04:25 Carbon Dioxide 25.9 mmol/L (21-32) 06/17/20 04:25 BUN 11 mg/dL (7-18) 06/17/20 04:25 Creatinine 1.43 mg/dL (0.55-1.02) H 06/17/20 04:25 Est GFR (MDRD) Af Amer 45 (>60) L 06/17/20 04:25 Est GFR (MDRD) Non-Af 37 (>60) L 06/17/20 04:25 Glucose 358 mg/dL (65-99) H 06/17/20 04:25 POC Glucose (mg/dL) 352 mg/dL (65-99) H 06/17/20 05:32 Calcium 8.8 mg/dL (8.5-10.1) 06/17/20 04:25 Corrected Calcium 10.5 mg/dL (8.5-10.1) H 06/17/20 04:25 Phosphorus 1.1 mg/dL (2.6-4.7) L 06/16/20 16:07 Magnesium 1.8 mg/dL (1.7-2.9) 06/17/20 04:25 Total Bilirubin 0.20 mg/dL (0.2-1.0) 06/17/20 04:25 AST 13 Units/L (15-37) L 06/17/20 04:25 ALT 13 Units/L (12-78) 06/17/20 04:25 Alkaline Phosphatase 60 Units/L (46-116) 06/17/20 04:25 Total Protein 4.5 g/dL (6.4-8.2) L 06/17/20 04:25 Albumin 1.9 g/dL (3.4-5.0) L 06/17/20 04:25 Globulin 2.6 g/dL (2.5-4.5) 06/17/20 04:25 Albumin/Globulin Ratio 0.7 Ratio (1.1-2.1) L 06/17/20 04:25 Prealbumin 11.7 mg/dL (18-35.7) L 06/17/20 04:25 Triglycerides 120 mg/dL (0-150) 06/16/20 16:07 Lipase 45 Units/L (73-393) L 06/10/20 05:40 SARS CoV-2 RNA Rapid RANJAN Negative (NEGATIVE) 06/10/20 07:31 Tissue Pathology To follow 06/11/20 12:30 - Assessment and Plan 1: obstructing mass of recto sigmoid ,. s/p Gant's procedure . post operative agitation and confusion .( Improving ). CKD , DM. HTN ,. same PO care . soft diet as tolerated and nutritional support . OOB , , DVT prophylaxis .. - Problem Patient Problems: Patient Problems Status post Saeed's procedure (Acute) Z93.3 CKD (chronic kidney disease) (Acute) N18.9 Rectal mass (Acute) K62.89 Nausea and vomiting in adult patient (Acute) R11.2
[2020-06-17] MEDS: K-RIDER 10 MEQ/NS 100 ML 10 MEQ/100 ML BAG IV PRN ×2 (09:36→11:38)
[2020-06-17] MEDS ORDERED: K-RIDER 10 MEQ/NS 100 ML 10 MEQ/100 ML BAG IV ONE ×2 (09:40→10:06)
[2020-06-17] MEDS: PROTONIX INJ 40 MG VIAL IVP SCH (10:02)
[2020-06-17] MEDS: LOVENOX INJ 30 MG SYR SC SCH (10:06)
[2020-06-17] MEDS: MVI IV SCH ×12 (10:48→18:02)
[2020-06-17] MEDS: CLINIMIX IV SCH ×12 (10:48→18:02)
[2020-06-17] MEDS: [UNRECOGNIZED DRUG - OTHER] IV SCH ×12 (10:48→18:02)
[2020-06-17] MEDS: LIPOSYN III 20% IV SCH ×12 (10:48→18:02)
[2020-06-17] MEDS ORDERED: MAGNESIUM SULFATE 1 GRAM/100 mL PREMIX 2 G/200 ML BAG IV ONE (13:33)
[2020-06-17] MEDS: MAGNESIUM SULFATE 1 GRAM/100 mL PREMIX 1 GM/100 ML BAG IV PRN ×2 (13:37→14:59)
[2020-06-17] MEDS ORDERED: ULTRAM PO SCH (14:00)
[2020-06-17] MEDS: HumuLIN R SC PRN (15:22)
[2020-06-17] MEDS ORDERED: HumuLIN R SUBCUT PRN (17:11)
[2020-06-17] MEDS: NS 1000 ML 1,000 ML IV SCH (17:15)
[2020-06-17] MEDS ORDERED: HumuLIN R SUBCUT ONE (17:47)
[2020-06-17] MEDS: RESTORIL CAP 30 MG PO SCH (20:12)
[2020-06-17] MEDS: ULTRAM PO SCH (20:14)
[2020-06-18 05:22] LABS: BASOPHILS % (AUTO) 0.3 % (0.2-1.0); EOSINOPHILS # (AUTO) 0.3 x10^3/uL (0.0-0.2); EOSINOPHILS % (AUTO) 3.9 % (0.9-2.9); HEMATOCRIT 24.9 % (36.0-47.0); HEMOGLOBIN 8.3 g/dL (12.0-16.0); LYMPHOCYTES # (AUTO) 1.5 X10^3/uL (1.3-2.9); LYMPHOCYTES % (AUTO) 22.9 % (21.0-51.0); MEAN CORPUSCULAR HGB CONC 33.3 g/dL (33.0-35.0); MEAN CORPUSCULAR VOLUME 84.2 fL (80.0-100.0); MEAN PLATELET VOLUME 8.5 fL (7.4-11.0); MONOCYTES # (AUTO) 0.6 x10^3/uL (0.3-0.8); MONOCYTES % (AUTO) 9.4 % (0.0-13.0); NEUTROPHILS # (AUTO) 4.2 x10^3/uL (2.2-4.8); NEUTROPHILS % (AUTO) 63.5 % (42.0-75.0); PLATELET COUNT 197 X10^3/uL (150.0-450.0); RED BLOOD COUNT 2.95 X10^6/uL (3.5-5.4); RED CELL DISTRIBUTION WIDTH 16.2 % (11.6-16.5); WHITE BLOOD COUNT 6.7 X10^3/uL (3.6-10.0)
[2020-06-18 05:45] LABS: ALBUMIN 1.8 g/dL (3.4-5.0); CALCIUM 9.1 mg/dL (8.5-10.1); CARBON DIOXIDE 25.7 mmol/L (21-32); COR CA(FOR HYPOALB) 10.9 mg/dL (8.5-10.1); CREATININE 1.51 mg/dL (0.55-1.02); TOTAL PROTEIN 4.4 g/dL (6.4-8.2)
[2020-06-18] MEDS: NS 1000 ML 1,000 ML IV SCH (06:17)
[2020-06-18] MEDS: PROTONIX INJ 40 MG VIAL IVP SCH (08:52)
[2020-06-18] MEDS: LOVENOX INJ 30 MG SYR SC SCH (08:52)
[2020-06-18] MEDS: ULTRAM PO SCH (08:52)
[2020-06-18] MEDS: CLINIMIX IV SCH ×6 (10:20)
[2020-06-18] MEDS: [UNRECOGNIZED DRUG - OTHER] IV SCH ×6 (10:20)
[2020-06-18] MEDS: LIPOSYN III 20% IV SCH ×6 (10:20)
[2020-06-18] MEDS: MVI IV SCH ×6 (10:20)
[2020-06-18 10:28] VITALS: BP 151/64
--- NOTE | 2020-06-18 10:45 | W.DIS.FURT ---
Summary of Discharge Discharge Summary of Date Date of Exam: 06/18/20 Admission Date Date of Admission: 06/10/20 Admission Diagnosis Patient Problems (Updated 06/15/20 @ 21:14 by Lars Villalobos) Status post Saeed's procedure (Acute) Z93.3 CKD (chronic kidney disease) (Acute) N18.9 Rectal mass (Acute) K62.89 Nausea and vomiting in adult patient (Acute) R11.2 Hospital Course: Pt is a 80 year old female past medical history of DMT2, CKD admitted for recto- sigmoid mass. Hospital course included resection of mass and colostomy(functioning). Labs/imaging: Wbc 6.7, Hgb 8.3, Plt 197, Na 141, K 3.4, Cr 1.51, Glucose 112. Post-surgery patient developed delirium that is the likely associated with an underlying dementia. Pt with poor nutritional intake, requiring short term TPN. All labs normalized. Mental status to be monitored at nursing facility. Patient discharged in stable condition to nursing facility for rehab and physical therapy. Vital Signs: Vital Signs (72 hours) 06/15/20 11:00 06/15/20 12:00 06/15/20 13:00 Temperature 99 F Pulse Rate [Right Brachial] 97 H 88 90 Respiratory Rate 18 12 20 Blood Pressure [Right Arm] 171/82 160/71 164/76 O2 Sat by Pulse Oximetry 97 99 100 06/15/20 14:00 06/15/20 15:00 06/15/20 16:00 Temperature Pulse Rate [Right Brachial] 92 H 89 82 Respiratory Rate 20 20 20 Blood Pressure [Right Arm] 175/71 154/69 155/64 O2 Sat by Pulse Oximetry 98 98 100 06/15/20 17:00 06/15/20 18:00 06/15/20 19:00 Temperature Pulse Rate [Right Brachial] 85 88 87 Respiratory Rate 20 20 18 Blood Pressure [Right Arm] 157/70 152/71 155/75 O2 Sat by Pulse Oximetry 99 99 99 06/15/20 20:00 06/15/20 21:00 06/15/20 22:00 Temperature 98.9 F Pulse Rate [Right Brachial] 87 88 98 H Respiratory Rate 18 18 20 Blood Pressure [Right Arm] 149/69 146/72 148/68 O2 Sat by Pulse Oximetry 100 99 100 06/15/20 23:00 06/16/20 00:00 06/16/20 01:00 Temperature 98.5 F Pulse Rate [Right Brachial] 84 79 98 H Respiratory Rate 18 16 20 Blood Pressure [Right Arm] 148/66 151/64 177/72 O2 Sat by Pulse Oximetry 96 100 99 06/16/20 02:00 06/16/20 03:00 06/16/20 04:00 Temperature 98.0 F Pulse Rate [Right Brachial] 82 82 91 H Respiratory Rate 18 18 18 Blood Pressure [Right Arm] 164/74 112/55 175/81 O2 Sat by Pulse Oximetry 96 100 99 06/16/20 05:00 06/16/20 06:00 06/16/20 07:00 Temperature Pulse Rate [Right Brachial] 90 86 82 Respiratory Rate 20 20 20 Blood Pressure [Right Arm] 174/78 164/65 160/62 O2 Sat by Pulse Oximetry 100 99 98 06/16/20 08:00 06/16/20 09:00 06/16/20 10:00 Temperature 97.4 F L Pulse Rate [Right Brachial] 82 81 79 Respiratory Rate 16 16 16 Blood Pressure [Right Arm] 174/71 166/72 178/66 O2 Sat by Pulse Oximetry 97 99 100 06/16/20 11:00 06/16/20 12:00 06/16/20 13:00 Temperature Pulse Rate [Right Brachial] 80 83 84 Respiratory Rate 12 16 16 Blood Pressure [Right Arm] 151/71 142/61 159/67 O2 Sat by Pulse Oximetry 98 100 100 06/16/20 14:00 06/16/20 15:00 06/16/20 16:00 Temperature Pulse Rate [Right Brachial] 79 78 80 Respiratory Rate 12 12 16 Blood Pressure [Right Arm] 168/66 185/70 182/80 O2 Sat by Pulse Oximetry 100 99 100 06/16/20 17:00 06/16/20 18:00 06/16/20 19:00 Temperature Pulse Rate [Right Brachial] 81 80 82 Respiratory Rate 12 12 18 Blood Pressure [Right Arm] 161/71 168/76 173/73 O2 Sat by Pulse Oximetry 99 100 100 06/16/20 20:00 06/16/20 21:00 06/16/20 22:00 Temperature 97.6 F Pulse Rate [Right Brachial] 85 87 77 Respiratory Rate 18 20 18 Blood Pressure [Right Arm] 160/70 165/70 161/71 O2 Sat by Pulse Oximetry 100 100 100 06/16/20 23:00 06/17/20 00:00 06/17/20 01:00 Temperature Pulse Rate [Right Brachial] 80 81 77 Respiratory Rate 18 18 15 Blood Pressure [Right Arm] 169/59 175/63 181/73 O2 Sat by Pulse Oximetry 100 99 100 06/17/20 02:00 06/17/20 03:00 06/17/20 04:00 Temperature 97.4 F L 97.0 F L Pulse Rate [Right Brachial] 84 83 86 Respiratory Rate 16 16 20 Blood Pressure [Right Arm] 185/74 181/69 133/49 O2 Sat by Pulse Oximetry 98 96 100 06/17/20 05:00 06/17/20 06:00 06/17/20 07:00 Temperature Pulse Rate [Right Brachial] 88 88 87 Respiratory Rate 18 18 18 Blood Pressure [Right Arm] 197/87 195/83 188/77 O2 Sat by Pulse Oximetry 98 99 98 06/17/20 08:00 06/17/20 09:00 06/17/20 10:00 Temperature 98.0 F Pulse Rate [Right Brachial] 85 86 84 Respiratory Rate 18 16 20 Blood Pressure [Right Arm] 191/92 200/78 202/87 O2 Sat by Pulse Oximetry 97 100 100 06/17/20 11:00 06/17/20 12:00 06/17/20 13:00 Temperature 97.6 F Pulse Rate [Right Brachial] 89 95 H 83 Respiratory Rate 18 18 20 Blood Pressure [Right Arm] 187/81 139/60 165/61 O2 Sat by Pulse Oximetry 99 98 99 06/17/20 14:00 06/17/20 15:00 06/17/20 16:00 Temperature Pulse Rate [Right Brachial] 87 86 85 Respiratory Rate 20 20 18 Blood Pressure [Right Arm] 161/67 161/67 161/64 O2 Sat by Pulse Oximetry 99 99 100 06/17/20 17:00 06/17/20 18:00 06/17/20 19:00 Temperature 98.4 F Pulse Rate [Right Brachial] 89 85 87 Respiratory Rate 18 18 16 Blood Pressure [Right Arm] 161/75 152/71 142/71 O2 Sat by Pulse Oximetry 100 99 99 06/17/20 20:00 06/17/20 20:14 06/17/20 21:00 Temperature 98.7 F Pulse Rate [Right Brachial] 86 94 H Respiratory Rate 16 16 18 Blood Pressure [Right Arm] 139/64 121/50 O2 Sat by Pulse Oximetry 99 99 06/17/20 21:14 06/17/20 22:00 06/17/20 23:00 Temperature Pulse Rate [Right Brachial] 88 86 Respiratory Rate 16 17 17 Blood Pressure [Right Arm] 104/47 113/56 O2 Sat by Pulse Oximetry 98 99 06/18/20 00:00 06/18/20 01:00 06/18/20 02:00 Temperature 99.3 F Pulse Rate [Right Brachial] 84 82 80 Respiratory Rate 14 13 11 L Blood Pressure [Right Arm] 123/67 110/45 113/47 O2 Sat by Pulse Oximetry 100 100 100 06/18/20 03:00 06/18/20 04:00 06/18/20 05:00 Temperature 97.6 F Pulse Rate [Right Brachial] 78 83 80 Respiratory Rate 14 12 12 Blood Pressure [Right Arm] 120/54 115/50 134/57 O2 Sat by Pulse Oximetry 100 100 99 06/18/20 06:00 06/18/20 07:00 06/18/20 08:00 Temperature 98.4 F Pulse Rate [Right Brachial] 83 86 95 H Respiratory Rate 14 18 20 Blood Pressure [Right Arm] 129/63 142/63 144/62 O2 Sat by Pulse Oximetry 99 100 99 06/18/20 09:00 06/18/20 10:00 Temperature Pulse Rate [Right Brachial] 101 H 106 H Respiratory Rate 20 20 Blood Pressure [Right Arm] 167/63 151/64 O2 Sat by Pulse Oximetry 98 99 Labs: Laboratory Last Values WBC 6.7 X10^3/uL (3.6-10.0) 06/18/20 04:05 RBC 2.95 X10^6/uL (3.5-5.4) L 06/18/20 04:05 Hgb 8.3 g/dL (12.0-16.0) L 06/18/20 04:05 Hct 24.9 % (36.0-47.0) L 06/18/20 04:05 MCV 84.2 fL (80.0-100.0) 06/18/20 04:05 MCH 28.0 pg (27.0-34.0) 06/18/20 04:05 MCHC 33.3 g/dL (33.0-35.0) 06/18/20 04:05 RDW 16.2 % (11.6-16.5) 06/18/20 04:05 Plt Count 197 X10^3/uL (150.0-450.0) 06/18/20 04:05 Plt Count Comment Adequate (ADEQUATE) 06/11/20 17:40 MPV 8.5 fL (7.4-11.0) 06/18/20 04:05 Neut % (Auto) 63.5 % (42.0-75.0) 06/18/20 04:05 Lymph % (Auto) 22.9 % (21.0-51.0) 06/18/20 04:05 [place] % (Auto) 9.4 % (0.0-13.0) 06/18/20 04:05 Eos % (Auto) 3.9 % (0.9-2.9) H 06/18/20 04:05 Baso % (Auto) 0.3 % (0.2-1.0) 06/18/20 04:05 Neut # (Auto) 4.2 x10^3/uL (2.2-4.8) 06/18/20 04:05 Lymph # (Auto) 1.5 X10^3/uL (1.3-2.9) 06/18/20 04:05 [place] # (Auto) 0.6 x10^3/uL (0.3-0.8) 06/18/20 04:05 Eos # (Auto) 0.3 x10^3/uL (0.0-0.2) H 06/18/20 04:05 Baso # (Auto) 0.0 X10^3/uL (0.0-0.1) 06/18/20 04:05 Absolute Nucleated RBC 0.1 /100WBC 06/18/20 04:05 Total Counted 100 06/11/20 17:40 Neutrophils % (Manual) 87 % (39-76) H 06/11/20 17:40 Band Neutrophils % 4 % (0-10) 06/11/20 17:40 Lymphocytes % (Manual) 5 % (13-43) L 06/11/20 17:40 Monocytes % (Manual) 4 % (4-9) 06/11/20 17:40 Plt Morphology Comment Normal (NORMAL) 06/11/20 17:40 RBC Morphology Normal (NORMAL) 06/11/20 17:40 Sodium 141 mmol/L (136-145) 06/18/20 04:05 Corrected Sodium 141 mmol/L (136-145) 06/18/20 04:05 Potassium 3.4 mmol/L (3.5-5.1) L 06/18/20 04:05 Chloride 110 mmol/L (98-107) H 06/18/20 04:05 Carbon Dioxide 25.7 mmol/L (21-32) 06/18/20 04:05 BUN 17 mg/dL (7-18) 06/18/20 04:05 Creatinine 1.51 mg/dL (0.55-1.02) H 06/18/20 04:05 Est GFR (MDRD) Af Amer 42 (>60) L 06/18/20 04:05 Est GFR (MDRD) Non-Af 35 (>60) L 06/18/20 04:05 Glucose 112 mg/dL (65-99) H 06/18/20 04:05 POC Glucose (mg/dL) 108 mg/dL (65-99) H 06/18/20 03:01 Calcium 9.1 mg/dL (8.5-10.1) 06/18/20 04:05 Corrected Calcium 10.9 mg/dL (8.5-10.1) H 06/18/20 04:05 Phosphorus 1.1 mg/dL (2.6-4.7) L 06/16/20 16:07 Magnesium 1.8 mg/dL (1.7-2.9) 06/17/20 04:25 Total Bilirubin 0.20 mg/dL (0.2-1.0) 06/18/20 04:05 AST 15 Units/L (15-37) 06/18/20 04:05 ALT 14 Units/L (12-78) 06/18/20 04:05 Alkaline Phosphatase 58 Units/L (46-116) 06/18/20 04:05 Total Protein 4.4 g/dL (6.4-8.2) L 06/18/20 04:05 Albumin 1.8 g/dL (3.4-5.0) L 06/18/20 04:05 Globulin 2.6 g/dL (2.5-4.5) 06/18/20 04:05 Albumin/Globulin Ratio 0.7 Ratio (1.1-2.1) L 06/18/20 04:05 Prealbumin 11.7 mg/dL (18-35.7) L 06/17/20 04:25 Triglycerides 120 mg/dL (0-150) 06/16/20 16:07 Lipase 45 Units/L (73-393) L 06/10/20 05:40 SARS CoV-2 RNA Rapid RANJAN Negative (NEGATIVE) 06/10/20 07:31 Tissue Pathology To follow 06/11/20 12:30 Reason For Visit: N/V, RECTOSIGMOID MASS Discharge Date Discharge Date: 06/18/20 Discharge Diagnosis All Active Problems (Updated 06/15/20 @ 21:14 by Lars Villalobos) Status post Saeed's procedure (Acute) CKD (chronic kidney disease) (Acute) Rectal mass (Acute) Nausea and vomiting in adult patient (Acute) Plan of Treatment: Continue with present treatment and follow up plan. Pt is to keep follow up appointment as instructed and take medications as ordered. Discharge Medications Discharge Medications: latex Allergy (Verified 06/20/17 07:49) Sulfa (Sulfonamide Antibiotics) [SULFA] Allergy (Verified 06/20/17 07:49) CONTINUE taking the following medications Co Q10 200 mg PO DAILY 06/10/20 [History] cephalexin 500 mg PO BID 06/10/20 [History] hydroxyzine HCl 10 mg PO DAILY 06/10/20 [History] insulin glargine U-300 conc [Toujeo SoloStar U-300 Insulin] 4 unit SUBCUT HS 06/10/20 [History] lorazepam 0.5 mg PO DAILY 06/10/20 [History] methimazole [Tapazole] 5 mg PO DAILY 06/10/20 [History] promethazine 25 mg PO Q6H PRN 06/10/20 [History] Discharge Disposition Assessment: Stable no acute distress noted. Discharge Disposition: [facility] Discharge Condition: Stable Discharge Plan Discharge Plan Hospital Course: Pt is a 80 year old female past medical history of DMT2, CKD admitted for recto- sigmoid mass. Hospital course included resection of mass and colostomy(functioning). Labs/imaging: Wbc 6.7, Hgb 8.3, Plt 197, Na 141, K 3.4, Cr 1.51, Glucose 112. Post-surgery patient developed delirium that is the likely associated with an underlying dementia. Pt with poor nutritional intake, requiring short term TPN. All labs normalized. Mental status to be monitored at nursing facility. Patient discharged in stable condition to nursing facility for rehab and physical therapy. Patient Disposition: 03 XF SNF Condition: Stable Health Concerns: Post Hospitalization: new medications and changes needed to prevent readmission or further decline. Pt educated and given instructions on all concerns. Care Plan Goals: Problem: Pain/Alteration in Comfort Goal: Improve/ Resolve Pain; Achieve Pain Tolerance Instructions: Take pain medications as prescribed. Contact your primary care provider if your pain is unrelieved or worsens. Follow up with primary care provider as directed. Plan of Treatment: Continue with present treatment and follow up plan. Pt is to keep follow up appointment as instructed and take medications as ordered. Assessment: Stable no acute distress noted. Prescriptions: Continued furosemide 40 MG tablet 40 mg PO QAM PRNRF: 0 sodium bicarbonate 650 MG tablet 650 mg PO DAILY RF: 0 cyanocobalamin (vitamin B-12) 1,000 MCG/ML solution 1,000 mcg IM MONTHLY RF: 0 cinacalcet [Sensipar] 30 MG tablet 30 mg PO DAILY RF: 0 paricalcitol 1 MCG capsule 1 mcg PO DAILY RF: 0 Toujeo SoloStar U-300 Insulin 300 UNITS/ML insulin pen 10 units SC QAM RF: 0 biotin 5,000 MCG tablet,disintegrating 5,000 mcg PO DAILY RF: 0 promethazine 25 mg Tablet 25 mg PO Q6H PRN (Reason: Nausea) RF: 0 Co Q10 capsule 200 mg PO DAILY RF: 0 methimazole [Tapazole] 5 mg Tablet 5 mg PO DAILY RF: 0 Toujeo SoloStar U-300 Insulin 300 unit/mL (1.5 mL) insulin pen 4 unit SUBCUT HS RF: 0 Changed tramadol 50 MG tablet 50 mg PO TID PRN (Reason: prn) Qty: 0 RF: 0 Discontinued aspirin [Aspir-Low] 81 MG tablet,delayed release (DR/EC) 81 mg PO DAILY RF: 0 gabapentin 300 MG capsule 300 mg PO HS RF: 0 Insulin Aspart [NovoLog insulin 10 mL vial] 100 UNITS/ML Vial 3 unit SC TID RF: 0 lorazepam 0.5 mg tablet 0.5 mg PO DAILY RF: 0 cephalexin 500 mg capsule 500 mg PO BID RF: 0 hydroxyzine HCl 10 mg Tablet 10 mg PO DAILY RF: 0 Orders to Discharge Patient Discharge Orders: Discharge (Routine); Ordered 06/18/20 Ordered By: Phu Villalpando Follow ups/Referrals Follow ups/Referrals: [facility] [Other] - 1 WEEK Phu Villalpando [Primary Care Provider] - 3 days LIVAN MENDOZA [STAFF PHYSICIAN] - 1 WEEK Instructions Instructions: Type 2 Diabetes Mellitus, Diagnosis, Adult, Colostomy Home Guide, Adult, Incentive Spirometer, Diabetes Mellitus and Sick Day Management, Colostomy, Adult, Care After, Chronic Kidney Disease, Adult, [id number], Stitches, Portia, or Adhesive Wound Closure, [id number], Incision Care, Adult, [id number] Stand Alone Forms: Precautions for COVID19, Patient Portal, Social Distancing
== END 2020-06-18 13:45 | DRG 330 ==
LOC: ER 03:33 → MED/SURG 07:14
PROVIDERS: ADMIT Family Medicine; ATTEND Family Medicine
DX: K59.09 Other constipation; C19 Malignant neoplasm of rectosigmoid junction; E11.65 Type 2 diabetes mellitus with hyperglycemia; N18.32 Chronic kidney disease, stage 3b; R41.82 Altered mental status, unspecified; K56.51 Intestinal adhesions [bands], with partial obstruction; K52.89 Other specified noninfective gastroenteritis and colitis; R11.2 Nausea with vomiting, unspecified; Z20.822 Contact with and (suspected) exposure to COVID-19; R26.89 Other abnormalities of gait and mobility